=== PATIENT | male | born 1985 | race Caucasian/White ===

== ENCOUNTER 2024-08-04 11:46 | Emergency (ER) | payer OTHER, SELFPAY ==
[2024-08-04 12:10] VITALS: BP 136/84; PULSE 115; RESP 18; TEMP 36.9; O2SAT 99; BMI 32.5
--- NOTE | 2024-08-04 12:18 | XR_ITS ---
Examination: Wrist, right 3 views Technique: Wrist AP, oblique, lateral 3 views Date and time of exam: 08/04/2024, 1:22 PM FINDINGS: No evidence of fracture or dislocation. No chronic degenerative changes or foreign bodies. IMPRESSION: Negative exam
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
--- NOTE | 2024-08-04 12:18 | XR_ITS ---
Examination: Humerus 2 views right INDICATION: Trauma Technique: Humerus, AP lateral 2 views Date and time of exam: 08/04/2024, 1:21 PM FINDINGS: No evidence of fracture or dislocation. No foreign body or soft tissue abnormality. IMPRESSION: Negative exam.
--- NOTE | 2024-08-04 12:18 | XR_ITS ---
Examination: Right elbow 3 views Technique: Elbow AP, oblique, lateral 3 views Exam date and time: 08/04/2024, 2:33 PM FINDINGS: Displaced fracture of the proximal radius. No other acute bony abnormality seen. IMPRESSION: Displaced radial head fracture..
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
[2024-08-04] MEDS: IBUPROFEN TAB 400 MG TABLET 800 MG PO (12:35)
[2024-08-04] MEDS: ACETAMINOPHEN 500 MG TABLET 1000 MG PO (12:35)
[2024-08-04] MEDS: HYDROcodone/APAP 5/325 TABLET 1 TAB PO (14:13)
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
--- NOTE | 2024-08-04 16:36 | XR_ITS ---
Examination: CT right elbow, without contrast. 2-D sagittal reconstructions. 2-D coronal reconstructions. 3-D reconstructions. Date and time of exam:August 04, 2024, 1652 hrs. Indications: Injury to the elbow today, elbow pain CTDI: vol (mGy):6 DLP: (mGycm):756 Technique: Multiple 1.25 mm axial sections of the right elbow have been obtained. 2-D sagittal and coronal reconstructions have been obtained. 3-D reconstructions have been obtained. Low dose protocols were performed. One or more of the following dose reduction techniques were used; automated exposure control, adjustment of the mA and/or KV according to patient size, use of iterative reconstruction technique. Findings: Acute fracture radial neck, extending into the radial head, without significant displacement No elbow dislocation Moderate joint space Impression: Acute fracture radial neck, extending into the radial head
[2024-08-04] MEDS: HYDROcodone/APAP 5/325 TABLET 2 TAB PO (18:16)
--- NOTE | 2024-08-04 18:24 | PRELIM_ITS ---
CT right elbow without intravenous contrast (axial sections with sagittal and coronal reformats) August 04, 2024 at 1654 hours Clinical History: Fracture. No prior study is available for comparison. Findings: There is an acute non-displaced, impacted fracture of the neck of the radius (series number 10, 43/111 ), extending to the head of the radius/intra-articular extension. No evidence of dislocation. There is moderate hemarthrosis. The visualized muscles are unremarkable with maintained intramuscular fat planes. The visualized subcutaneous soft tissues are unremarkable. Impression: Acute non-displaced, impacted fracture of the neck of the radius, extending to the lateral aspect of the head/intra-articular extension. Moderate hemarthrosis. Report Electronically Signed By: Maximiliano Lawrence 08/04/2024 6:24:42 PM [EST]
== END 2024-08-04 18:20 | disposition home or self-care (01) ==
PROVIDERS: Emergency Provider Family Medicine
DX: S52.121A Displaced fracture of head of right radius, initial encounter for closed fracture (principal); X58.XXXA Exposure to other specified factors, initial encounter; Y93.55 Activity, bike riding; S71.111A Laceration without foreign body, right thigh, initial encounter; Z23 Encounter for immunization
CPT/HCPCS: 12002; 73030; 73060; 73080; 73090; 73100; 73200; 73552; 99283; A4565; A9270

== ENCOUNTER 2024-08-28 21:43 | Inpatient (IN) | payer MEDICAID, SELFPAY ==
[2024-08-28 21:45] VITALS: BMI 32.5
[2024-08-28 21:50] VITALS: BP 159/94; PULSE 126; RESP 19; TEMP 36.8; O2SAT 99
--- NOTE | 2024-08-28 22:23 | XR_ITS ---
Examination: Abdomen AP single view Technique: AP portable supine abdomen, single view Exam date and time: August 28, 2024 1002 hrs. Indications: Foreign body in the rectum history Findings: 15 cm opaque foreign body in the pelvis likely in the rectosigmoid Abundant stool in the right colon No obstruction No free air Impression: Opaque foreign body in the pelvis likely in the rectosigmoid
--- NOTE | 2024-08-28 22:23 | PD.EDRME ---
Rapid Medical Screening Exam RME Arrival date/time: 08/28/24 21:43 39M with no significant PMH presents to ED with rectal/anal FB from 3 days ago. Patient has not been able to have BM. Chief Complaint: Abdominal Pain Time Seen by Provider: 08/28/24 22:47 Vital signs: Vital Signs Temperature 98.2 F 08/28/24 21:50 Pulse Rate 126 H 08/28/24 21:50 Respiratory Rate 19 08/28/24 21:50 Blood Pressure 159/94 H 08/28/24 21:50 Pulse Oximetry (%) 99 08/28/24 21:50 Oxygen Delivery Method Room Air 08/28/24 21:50
--- NOTE | 2024-08-28 22:47 | EDNOTE_ITS ---
ED Abdominal Pain RME/HPI General Chief Complaint: Abdominal Pain Stated complaint: ABD PAIN,CONSTIPATION FOR 3 DAYS Time seen by provider: 08/28/24 22:47 Arrival date/time: 08/28/24 21:43 39M with no significant PMH presents to ED with rectal/anal FB from 3 days ago. Patient has just been experimenting and it is an [employer] [place] De[employer] container. Patient has not been able to have BM, but denies N/V. Limitations: no limitations RME / HPI RME / HPI narrative: 08/28/24 21:43 Related Data Previous Rx's ?Medication ?Instructions ?Recorded ibuprofen 800 mg tablet 800 mg PO TID PRN pain #30 t abs 01/05/24 hydrocodone 5 mg-acetaminophen 325 1 tab PO Q6H PRN pa in #20 tabs 08/04/24 mg tablet ibuprofen 800 mg tablet 800 mg PO Q6H PRN pain #14 t abs 08/04/24 Allergies Allergy/AdvReac Type Severity Reaction Status Date / Time No Known Allergies Allergy Verified 08/28/24 21:44 Review of Systems Review of Systems Systems Reviewed: All systems reviewed, normal except as documented Constitutional Constitutional: Reports system reviewed and no additional complaints, except as documented, Denies fever(s) and Denies headache(s) ENT Ears, Nose, Mouth, and Throat: Denies disequilibrium and Denies headache(s) Cardiovascular Cardiovascular: Reports system reviewed and no additional complaints, except as documented, Denies chest pain and Denies dyspnea Respiratory Respiratory: Reports system reviewed and no additional complaints, except as documented, Denies cough and Denies dyspnea Gastrointestinal Gastrointestinal: Reports system reviewed and no additional complaints, except as documented, Reports as per HPI, Reports abdominal pain, Denies nausea and Denies vomiting Neurologic Neurologic: Reports system reviewed and no additional complaints, except as documented, Denies confusion, Denies disequilibrium and Denies headache(s) Psychiatric Psychiatric: Denies confusion Past Medical History Past Medical History NEUROLOGIC: Negative Neurological Disorders CARDIAC: Negative Cardiac Disorders or Congestive Heart Failure RESPIRATORY: Negative Chronic Obstructive Pulmonary Disease (COPD) GENITOURINARY: Negative Renal Disease ENDOCRINE: Negative Diabetes Mellitus Type 1 or Diabetes Mellitus Type 2 Social History SMOKING STATUS: Never smoker ED Exam General Limitations: Present no limitations General appearance: Present alert and in no apparent distress Head Head exam: Present atraumatic Eye Eye exam: Present normal appearance, PERRL and EOMI ENT ENT exam: Present normal exam, normal oropharynx and mucous membranes moist Neck Neck exam: Present normal inspection, full ROM and trachea midline Chest Chest inspection: Present normal inspection and symmetric chest wall rise Respiratory Respiratory exam: Present normal lung sounds bilaterally Cardiovascular Cardiovascular exam: Present regular rate, normal rhythm and normal heart sounds Abdominal Exam Abdominal exam: Present soft and normal bowel sounds Extremities Exam Extremities exam: Present normal inspection and full ROM Back Exam Back exam: Present normal inspection and full ROM Neurological Exam Neurological exam: Present alert, oriented X3 and CN II-XII intact Psychiatric Psychiatric exam: Present normal affect and normal mood Skin Skin exam: Present warm, dry, intact and normal color Course Quality Measures none Orders Category Date Time Status Admit to Inpatient Status Routine Admission 08/28/24 23:03 Active Patient Condition Routine Admission 08/28/24 23:33 Ordered COVID-19 Screening Questionnaire NOW Care 08/28/24 22:49 Active Decision to Admit X1 Care 08/28/24 22:49 Completed EKG (ED ONLY) *Do not use* NOW Care 08/28/24 22:54 Active Insert IV NOW Care 08/28/24 22:49 Active NPO NOW Care 08/28/24 23:03 Active Notify provider NEEDED Care 08/28/24 23:33 Active Consult to Gastroenterology Stat Cons 08/28/24 22:49 Ordered Diet NPO (NOW) Diet 08/28/24 23:03 Active EKG (ED Only) Stat Exams 08/28/24 22:54 Draft XR abdomen 1V Stat Exams 08/28/24 22:23 Completed CBC AM DRAW Lab 08/29/24 05:00 Ordered CBC AM DRAW Lab 08/30/24 05:00 Ordered CBC AM DRAW Lab 08/31/24 05:00 Ordered CBC Stat Lab 08/28/24 23:15 Completed CMP [Comprehensive Metabolic Panel] Stat Lab 08/28/24 23:15 Received Comprehensive Metabolic Panel AM DRAW Lab 08/29/24 05:00 Ordered Comprehensive Metabolic Panel AM DRAW Lab 08/30/24 05:00 Ordered Comprehensive Metabolic Panel AM DRAW Lab 08/31/24 05:00 Ordered PT [Prothrombin Time with INR] Stat Lab 08/28/24 22:54 Ordered PTT [Partial Thromboplastin Time] Stat Lab 08/28/24 22:54 Ordered Acetaminophen Tab [Tylenol Tab] Med 08/28/24 23:33 Active 650 mg PO Q6H PRN Heparin Inj Med 08/29/24 06:00 Ordered 5,000 unit SC Q8HR Morphine Inj Med 08/28/24 22:55 Discontinued 5 mg IVP X1 ONE Ondansetron Inj [Zofran Inj] Med 08/28/24 23:33 Ordered 4 mg IV Q6H PRN Sodium Chloride 0.9% 1000 ml [Ns] 1,000 ml Med 08/28/24 23:31 Active IV 125 mls/hr Code Status Routine Oth 08/28/24 23:33 Ordered Oxygen Delivery PRN RT 08/28/24 23:33 Active Vital Signs Vital signs: Vital Signs Temperature 98.2 F 08/28/24 21:50 Pulse Rate 126 H 08/28/24 21:50 Respiratory Rate 19 08/28/24 21:50 Blood Pressure 159/94 H 08/28/24 21:50 Pulse Oximetry (%) 99 08/28/24 21:50 Oxygen Delivery Method Room Air 08/28/24 21:50 O2 at 99% on RA and WNLs Abdominal Pain MDM MDM Narrative MDM Narrative:: 39M with no significant PMH presents to ED with rectal/anal FB from 3 days ago. Patient has just been experimenting and it is an [employer] [place] De[employer] container. Patient has not been able to have BM, but denies N/V. Physical exam reveals no ab tenderness. Patient is afebrile, calm, and alert. XR reveals FB in rectum. Spoke to Dr. Adair, who will consult. Dr. Echavarria will admit. Patient data External records reviewed:: [facility] previous records Clinical information provided by:: patient Social determinants that could affect healthcare access:: none Patient has the following chronic illnesses:: none How is presenting disease/condition affected by chronic disease/condition?: no chronic disease Evaluation data The following diagnostics were reviewed and interpreted by me:: lab results and radiology exam(s) Lab and/or radiology exams considered but not ordered:: ordered Interpretation Summary: above Medications / Prescriptions Medications or Prescriptions considered but not ordered:: ordered Medication administrations:: Medication Administration History Acetaminophen (Acetaminophen 325 Mg Tablet) 650 mg PO Q6H PRN PRN Reason: Fever >100.3 or pain 1-3 Stop: 09/27/24 23:32 Heparin Sodium (Porcine) (Heparin Sod Inj 5000 Unit/Ml Vial) 5,000 unit SC Q8HR FREDDY Stop: 09/12/24 05:59 Sodium Chloride (Ns) 1,000 mls @ 125 mls/hr IV .Q8H FREDDY Stop: 09/27/24 23:30 Ondansetron HCl (Ondansetron Inj 2 Mg/Ml Inj 2 Ml) 4 mg IV Q6H PRN; Protocol PRN Reason: NAUSEA OR VOMITING Stop: 09/27/24 23:32 Discontinued Medications Morphine Sulfate (Morphine Sulf Inj 10 Mg/Ml Vial) 5 mg IVP X1 ONE Stop: 08/28/24 22:56 Last Admin: 08/28/24 23:13 Dose: 5 mg Documented By: EE above Consultations Consultation(s) initiated? (list below): Yes Diagnosis Differential diagnosis abdominal pain: abdominal pain, acute appendicitis, calculus of kidney, constipation, diverticulitis, endometriosis, gastroenteritis, pancreatitis, small bowel obstruction and other (FB rectum) Most likely diagnosis given after review of the tests above:: FB rectum Admission Indicated Admission indicated?: indicated Admission Request Was there a request for admission?: Yes Admission Attestation Admission request attestation: Discussed case with [Dr. Echavarria] from Hospitalist service regarding admission. Discussed patients ED course, exam findings, labs, and radiology results. The Hospitalist [agrees] to accept the patient for admission. Disposition Plan Disposition Plan: Admit Discharge Plan Plan Patient Disposition: Admit Acute Care w/in Hospital Prescriptions/Referrals Prescriptions/Med Rec: No Action hydrocodone-acetaminophen 5-325 mg tablet 1 tab PO Q6H MDD 4 PRN (Reason: pain) Qty: 20 0RF ibuprofen 800 mg tablet 800 mg PO Q6H PRN (Reason: pain) Qty: 14 0RF ibuprofen 800 mg tablet 800 mg PO TID PRN (Reason: pain) Qty: 30 0RF Problem List Clinical Impression: Foreign body in anus and rectum, initial encounter Patient/Caregiver Discharge Instructions Print Language: Jordanian Stand Alone Forms: [employer] Award Info., Patient Portal Info Letter
--- NOTE | 2024-08-28 22:54 | EKG_ITS ---
[facility] Test Date: 2024-08-28 Pat Name: RHONA NEGRETE Department: Room: - Gender: Male Ophthalmic Lens Inspector: : 1985 Requested By: Kushal Ott Order Number: [id number] Reading MD: Kushal Ott Measurements Intervals [place] Rate: 112 P: 42 FL: 140 QRS: -13 QRSD: 109 T: 38 QT: 331 QTc: 453 Interpretive Statements SINUS TACHYCARDIA ABNORMAL RHYTHM ECG No previous ECG available for comparison /store/S0/[id number]/[id number].pdf
[2024-08-28] MEDS: MORPHINE SULF INJ 10 MG/ML VIAL 5 MG IVP (23:13)
--- NOTE | 2024-08-28 23:17 | PD.EVENT ---
Documentation for date of: 08/28/24 Event Note Event Note: A 39-year-old male presented to the ER with the chief complaint of rectal foreign body. The patient reported that two days ago, he inserted an antiperspirant spray can into his rectum. He stated he has been unable to pass it since the time of insertion. He denies rectal pain or nausea but noted the inability to retrieve the object. He last had a bowel movement prior to the incident and has not had one since. He reports feeling nervous but is otherwise asymptomatic. The patient has a history of HTN. Current medications include Lisinopril, though he has not taken it for approximately 1.5 to 2 months. Social history includes daily cigarette use; he denies alcohol or recreational drug use. He has not been hospitalized recently. In the ER, vital signs recorded as temp 98.2 F, HR 126 bpm, RR 19, BP 159/94 mmHg. KUB revealed a foreign body in the rectum. GI was consulted and the patient is planned for admission. #Rectal Foreign Body Assessment: Retained rectal foreign object (antiperspirant spray can) x2 days, no passage, no bowel movement since insertion, asymptomatic aside from anxiety; KUB confirms retained object; tachycardia (HR 126), BP elevated Plan: - Admit to monitor for potential complications (perforation, bleeding, obstruction) - NPO - GI to attempt endoscopic retrieval; proceed to OR if unsuccessful - Monitor vitals, abdominal exams, signs of peritonitis - CBC, BMP - Pain management as needed #Hypertension Assessment: History of HTN, nonadherent to Lisinopril x ~2 months, current BP 159/94 mmHg Plan: - Monitor BP during hospitalization - Athletic Trainer on medication adherence - Outpatient follow-up for ongoing BP management #Nicotine Dependence Assessment: Daily cigarette use Plan: - Offer nicotine replacement therapy during hospitalization - Athletic Trainer on smoking cessation benefits
[2024-08-28 23:32] LABS: Basophils # (Auto) 0.1 Thou/mm3 (0.0-0.2); Basophils % (Auto) 0 % (0-2.5); Eosinophils # (Auto) 0.3 Thou/mm3 (0.0-0.5); Eosinophils % (Auto) 2 % (0-10); Hemoglobin 15.9 g/dL (13.5-16.0); Immature Granulocytes % (Auto) 1 % (0-0); Immature Granulocytes Auto 0.09 Thou/mm3 (0.00-0.00); Lymphocytes # (Auto) 2.9 Thou/mm3 (1.0-4.8); Lymphocytes % (Auto) 22 % (10-50); Mean Corpuscular HGB Conc 34.6 g/dl (31.0-37.0); Mean Corpuscular Hemoglobin 30.1 pg (25.0-35.0); Mean Corpuscular Volume 87 fL (80-100); Monocytes % (Auto) 8 % (0-12); Neutrophils # (Auto) 8.5 Thou/mm3 (1.8-7.7); Neutrophils % (Auto) 66 % (37-80); Nucleated Red Blood Cell % 0 /100 WBC (0); Platelet Count 454 Thou/mm3 (140-440); RDW Standard Deviation 40.3 fL (35.1-43.9); Red Blood Count 5.29 Miln/mm3 (4.50-5.90); White Blood Count 12.8 Thou/mm3 (3.8-10.6)
--- NOTE | 2024-08-28 23:36 | ESHP_ITS ---
Documentation for date of: 08/28/24 HPI History of Present Illness Chief complaint: rectal foreign body History of present illness: The patient is a 39-year-old male with a previous medical history of hypertension who came into the ED on due to rectal foreign body. His girlfriend at the bedside, patient reports that he was experimenting and inserted old spice deodorant per rectum 3 days ago. Since then he did not had bowel movements, he denies nausea, vomiting, abdominal pain, but reports feeling of pressure in the lower abdomen. He denies fever or chills, shortness of breath. GI specialist Dr. Adair was consulted for foreign body removal. ED course: Blood pressure 159/94, heart rate 126, febrile, saturating adequately on room air. Labs were remarkable for mild leukocytosis 12.8, coag panel unremarkable, INR 1, sodium 140, potassium 3.7, GFR more than 60. Abdominal x- ray showed opaque foreign body in the pelvis likely in the rectosigmoid. EKG showed sinus tachycardia. Patient is going to be admitted for foreign body removal for further monitoring and management. Social history: Smokes vape every day, denies alcohol use, denies recreational substances. Surgical history: Denies surgeries Home medications: Lisinopril Review of Systems Review of Systems Systems Reviewed: All systems reviewed, normal except as documented Past Medical History Past Medical History NEUROLOGIC: Negative Neurological Disorders CARDIAC: Negative Cardiac Disorders or Congestive Heart Failure RESPIRATORY: Negative Chronic Obstructive Pulmonary Disease (COPD) GENITOURINARY: Negative Renal Disease ENDOCRINE: Negative Diabetes Mellitus Type 1 or Diabetes Mellitus Type 2 Social History SMOKING STATUS: Current every day smoker (vaping) Exam Vital Signs Temp Pulse Resp BP Pulse Ox O2 Del Method 98.2 F 126 H 19 159/94 H 99 Room Air 08/28/24 21:50 08/28/24 21:50 08/28/24 21:50 08/28/24 21:50 08/28/24 21:50 08/28/24 21:50 Narrative Exam Physical Exam General: Awake and in no acute distress. Conversational and non-toxic appearing. Flushing of face and neck. HEENT: Normocephalic, atraumatic, mucous membranes moist. Heart: Regular rate and rhythm, no murmurs. Lungs: Clear to auscultation with no wheezing or crackles. Abdomen: Soft, nondistended, nontender, positive bowel sounds. ?No guarding or rebound tenderness. Neurologic: Alert and oriented x3, no gross neurological deficit, and patient able to move all 4 extremities. Extremities: No edema. Skin: No rash or ecchymoses. Results: Labs 08/28/24 23:15 08/28/24 23:15 Quality Measures Quality Measures VTE prophylaxis Medications Home Medications and Allergies Allergies Allergy/AdvReac Type Severity Reaction Status Date / Time No Known Allergies Allergy Verified 08/28/24 21:44 Visit Medications Acetaminophen (Acetaminophen 325 Mg Tablet) 650 mg PO Q6H PRN PRN Reason: Fever >100.3 or pain 1-3 Stop: 09/27/24 23:32 Heparin Sodium (Porcine) (Heparin Sod Inj 5000 Unit/Ml Vial) 5,000 unit SC Q8HR FREDDY Stop: 09/12/24 05:59 Sodium Chloride (Ns) 1,000 mls @ 125 mls/hr IV .Q8H FREDDY Stop: 09/27/24 23:30 Ondansetron HCl (Ondansetron Inj 2 Mg/Ml Inj 2 Ml) 4 mg IV Q6H PRN; Protocol PRN Reason: NAUSEA OR VOMITING Stop: 09/27/24 23:32 Discontinued Medications Morphine Sulfate (Morphine Sulf Inj 10 Mg/Ml Vial) 5 mg IVP X1 ONE Stop: 08/28/24 22:56 Last Admin: 08/28/24 23:13 Dose: 5 mg Assessment & Plan Plan The patient is a 39-year-old male with a previous medical history of hypertension who came into the ED on due to rectal foreign body. Patient is going to be admitted for foreign body removal for further monitoring and management. #Rectal foreign body Patient had inserted a can of Old Spice Deodorant in his rectum 3 days ago. Denies fever, chills, abdominal pain, nausea, vomiting. No guarding, rebounding tenderness on palpation. Plan: - GI consult for foreign body removal - NPO - Further management depends on results of retrieval - Continue to monitor for signs of peritonitis #Hypertension Asymptomatic. BP 159/94 Plan: - Continue monitoring for now Health maintenance: FEN: NPO DVT prophylaxis: heparin sc GI prophylaxis: none Dispo: medsurg CODE STATUS: Full code Plan of care discussed with attending Dr. Echavarria. Susan Dominique MD, PGY 1. Attending Provider Attestation/Addendum Pt was evaluated and plan formulated together with the housestaff team. I have reviewed the residents note above and agree with most of its content. Please refer to the residents note for additional details.
[2024-08-28 23:50] LABS: Alanine Aminotransferase 26 U/L (10-49); Albumin, Serum 4.4 gm/dL (3.5-5.0); Albumin/Globulin Ratio 1.6 (1.2-2.2); Alkaline Phosphatase 120 U/L (46-116); Anion Gap 11 (7-16); Aspartate Amino Transferase 24 U/L (0-34); BUN/Creatinine Ratio 10 Ratio (12-20); Bilirubin,Total 0.4 mg/dL (0.3-1.2); Blood Urea Nitrogen 10 mg/dL (9-23); Calcium 9.6 mg/dL (8.3-10.6); Calcium (Corrected) 9.6 mg/dL (8.5-10.1); Carbon Dioxide 21.5 mMol/L (20.0-31.0); Chloride 108 mMol/L (98-107); Estimated Creatinine Clearance 115.5 mL/min (>60); Globulin 2.8 gm/dL (2.3-3.5); Glucose 98 mg/dL (74-106); Osmolality,Calculated 278 (275-295); Potassium 3.7 mMol/L (3.4-5.1); Sodium 140 mMol/L (136-145); Total Protein 7.2 gm/dL (5.7-8.2); eGFR > 60 See Note
[2024-08-29] VITALS (24 sets, daily range): BP systolic 109–154; BP diastolic 67–112; PULSE 71–99; RESP 12–99; TEMP 35.9–36.8; O2SAT 94–100; BMI 32.7; BMI 32.2
[2024-08-29 00:20] LABS: Partial Thromboplastin Time 27.3 Seconds (22.0-36.0); Prothrombin Time 11.3 Seconds (9.0-12.2)
[2024-08-29] MEDS: SODIUM CHLORIDE 0.9% 1000 ML 1,000 ML 125 ML IV ×3 (00:49→21:17)
[2024-08-29] MEDS: HEPARIN SOD INJ 5000 UNIT/ML VIAL SC ×2 (05:55→21:54)
[2024-08-29 06:31] LABS: Alanine Aminotransferase 22 U/L (10-49); Albumin/Globulin Ratio 1.7 (1.2-2.2); Alkaline Phosphatase 110 U/L (46-116); Anion Gap 11 (7-16); Aspartate Amino Transferase 17 U/L (0-34); BUN/Creatinine Ratio 13 Ratio (12-20); Basophils # (Auto) 0.1 Thou/mm3 (0.0-0.2); Basophils % (Auto) 1 % (0-2.5); Bilirubin,Total 0.6 mg/dL (0.3-1.2); Blood Urea Nitrogen 12 mg/dL (9-23); Calcium 8.7 mg/dL (8.3-10.6); Calcium (Corrected) 8.7 mg/dL (8.5-10.1); Carbon Dioxide 26.2 mMol/L (20.0-31.0); Chloride 107 mMol/L (98-107); Creatinine (Component) 0.9 mg/dL (0.6-1.3); Eosinophils # (Auto) 0.4 Thou/mm3 (0.0-0.5); Eosinophils % (Auto) 4 % (0-10); Estimated Creatinine Clearance 127.9 mL/min (>60); Globulin 2.3 gm/dL (2.3-3.5); Glucose 88 mg/dL (74-106); Hematocrit 44.8 % (41.0-53.0); Immature Granulocytes % (Auto) 1 % (0-0); Immature Granulocytes Auto 0.08 Thou/mm3 (0.00-0.00); Lymphocytes # (Auto) 3.2 Thou/mm3 (1.0-4.8); Lymphocytes % (Auto) 31 % (10-50); Mean Corpuscular HGB Conc 33.5 g/dl (31.0-37.0); Mean Corpuscular Hemoglobin 30.3 pg (25.0-35.0); Mean Corpuscular Volume 91 fL (80-100); Monocytes % (Auto) 9 % (0-12); Neutrophils # (Auto) 5.7 Thou/mm3 (1.8-7.7); Neutrophils % (Auto) 54 % (37-80); Nucleated Red Blood Cell % 0 /100 WBC (0); Osmolality,Calculated 285 (275-295); Platelet Count 420 Thou/mm3 (140-440); Potassium 3.6 mMol/L (3.4-5.1); Red Blood Count 4.95 Miln/mm3 (4.50-5.90); Sodium 144 mMol/L (136-145); Total Protein 6.3 gm/dL (5.7-8.2); White Blood Count 10.4 Thou/mm3 (3.8-10.6); eGFR > 60 See Note
[2024-08-29] MEDS: MORPHINE SULF INJ 10 MG/ML VIAL IVP (09:54)
--- NOTE | 2024-08-29 10:09 | PC.SS ---
Follow up note: Pt is on IV pain meds. Dr. Adair is consulting.
--- NOTE | 2024-08-29 11:48 | ESPR_ITS ---
Documentation for date of: 08/29/24 Subjective Subjective Interval history: Patient seen and examined at bedside. Patient admitted overnight for foreign body object at rectosigmoid junction. Gastroenterology was consulted, recommended Fleet enemas. Patient will be evaluated by GI for possible sigmoidoscopy. Exam Vital Signs Temp Pulse Resp BP Pulse Ox O2 Del Method 97.4 F 79 18 145/96 H 95 Room Air 08/29/24 08:00 08/29/24 09:52 08/29/24 09:52 08/29/24 08:00 08/29/24 08:00 08/29/24 08:00 Narrative Exam Physical Exam General: Awake and in no acute distress. Conversational and non-toxic appearing. HEENT: Normocephalic, atraumatic, mucous membranes moist. Heart: Regular rate and rhythm, no murmurs. Lungs: Clear to auscultation with no wheezing or crackles. Abdomen: Soft, nondistended, nontender, positive bowel sounds. ?No guarding or rebound tenderness. Neurologic: Alert and oriented x3, no gross neurological deficit, and patient able to move all 4 extremities. Extremities: No edema. Skin: No rash or ecchymoses. Objective Labs 08/30/24 05:15 08/30/24 05:15 Labs: Laboratory Results - last 24 hr 08/28/24 08/28/24 08/29/24 23:15 23:45 04:34 WBC 12.8 H 10.4 RBC 5.29 4.95 Hgb 15.9 15.0 Hct 46.0 44.8 MCV 87 91 MCH 30.1 30.3 MCHC 34.6 33.5 RDW Std Deviation 40.3 42.0 Plt Count 454 H 420 D Neut % (Auto) 66 54 Lymph % (Auto) 22 31 [place] % (Auto) 8 9 Eos % (Auto) 2 4 Baso % (Auto) 0 1 Neut # (Auto) 8.5 H 5.7 Lymph # (Auto) 2.9 3.2 [place] # (Auto) 1.0 H 1.0 H Eos # (Auto) 0.3 0.4 Baso # (Auto) 0.1 0.1 Immature Gran # (Auto) 0.09 H 0.08 H Absolute Nucleated RBC 0.00 0.00 Immature Gran % 1 H 1 H Nucleated RBC % 0 0 PT 11.3 INR 1.0 APTT 27.3 Sodium 140 Cancelled 144 Potassium 3.7 Cancelled 3.6 Chloride 108 H Cancelled 107 Carbon Dioxide 21.5 Cancelled 26.2 Anion Gap 11 Cancelled 11 BUN 10 Cancelled 12 Creatinine 1.0 Cancelled 0.9 Estim Creat Clear Calc 115.5 Cancelled 127.9 eGFR > 60 Cancelled > 60 BUN/Creatinine Ratio 10 L Cancelled 13 Glucose 98 Cancelled 88 Calculated Osmolality 278 Cancelled 285 Calcium 9.6 Cancelled 8.7 Corrected Calcium 9.6 Cancelled 8.7 Total Bilirubin 0.4 Cancelled 0.6 AST 24 Cancelled 17 ALT 26 Cancelled 22 Alkaline Phosphatase 120 H Cancelled 110 Total Protein 7.2 Cancelled 6.3 Albumin 4.4 Cancelled 4.0 Globulin 2.8 Cancelled 2.3 Albumin/Globulin Ratio 1.6 Cancelled 1.7 Quality Measures Quality Measures VTE prophylaxis Assessment & Plan Assessment Current Active Medications: Generic Name Dose Route Start Last Admin Trade Name Freq PRN Reason Stop Dose Admin Acetaminophen 650 mg 08/28/24 23:33 Acetaminophen 325 Mg Tablet PO 09/27/24 23:32 Q6H PRN Fever >100.3 or pain 1-3 Heparin Sodium (Porcine) 5,000 unit 08/29/24 06:00 08/29/24 05:55 Heparin Sod Inj 5000 Unit/Ml Vial SC 09/12/24 05:59 5,000 unit Q8HR FREDDY Administration Sodium Chloride 1,000 mls @ 125 mls/hr 08/28/24 23:31 08/29/24 09:54 Ns IV 09/27/24 23:30 125 mls/hr .Q8H FREDDY Administration Morphine Sulfate 1 mg 08/29/24 08:33 08/29/24 09:54 Morphine Sulf Inj 10 Mg/Ml Vial IVP 09/03/24 08:32 1 mg Q4HR PRN Administration BREAKTHROUGH PAIN (SEVERE) Protocol Nicotine 14 mg 08/29/24 11:30 Nicotine Patch 14 Mg/24 Hr Patch.Td24 TOP 09/28/24 11:29 QDAY FREDDY Ondansetron HCl 4 mg 08/28/24 23:33 Ondansetron Inj 2 Mg/Ml Inj 2 Ml IV 09/27/24 23:32 Q6H PRN NAUSEA OR VOMITING Protocol Plan The patient is a 39-year-old male with a previous medical history of hypertension who came into the ED on due to rectal foreign body. Patient is going to be admitted for foreign body removal for further monitoring and management. #Rectal foreign body Patient had inserted a can of Old Spice Deodorant in his rectum 3 days ago. Denies fever, chills, abdominal pain, nausea, vomiting. No guarding, rebounding tenderness on palpation. Plan: - Ordered Fleet enemas - GI consult for foreign body removal - NPO - Further management depends on results of retrieval - Continue to monitor for signs of peritonitis #Hypertension Asymptomatic. BP 159/94. No known home medication. Plan: - Continue monitoring for now Health maintenance: FEN: NPO DVT prophylaxis: heparin sc GI prophylaxis: none Dispo: medsurg CODE STATUS: Full code Case discussed with Attending Dr. Deras. Cleopatra Rios PGY1 Disclaimer: This note was dictated by speech recognition. Minor errors in cleaner operator may be present due to voice recognition software. Attending Provider Attestation/Addendum I reviewed labs, imaging, EKG, home medications and prior available records. Face to face evaluation was performed by me. I have personally examined the patient and discussed assessment and plan with the IM team. I reviewed the resident note and agree with the plan with exceptions as below. Foreign body in anus Leukocytosis Tobacco use Trend WBC: Downtrending Start prophylactic IV Zosyn Consulted GI: Recommended Fleet enema x 3. If not working then we will proceed to colonoscopy Counseled the patient regarding the importance of tobacco cessation
[2024-08-29] MEDS: NICOTINE PATCH 14 MG/24 HR PATCH.TD24 TOP (12:21)
--- NOTE | 2024-08-29 19:17 | PD.IMCONS ---
HPI Data of Consult Requesting Physician: Pee Deras MD Primary Care Provider: Physician No Primary/Family Consult Narrative Reason for consult: Foreign body rectum History of present illness: 39-year-old male I consulted at the request of the ER physician for a foreign body in the rectum 15 cm long piece seen on abdominal x-ray cc:: cc: Pee Deras MD Review of Systems Review of Systems Systems Reviewed: All systems reviewed, normal except as documented Meds Home Medications and Allergies Allergies Allergy/AdvReac Type Severity Reaction Status Date / Time No Known Allergies Allergy Verified 08/28/24 21:44 Exam Vital Signs Temp Pulse Resp BP Pulse Ox O2 Del Method 97.6 F 99 17 143/97 H 96 Room Air 08/29/24 16:00 08/29/24 16:00 08/29/24 16:00 08/29/24 16:00 08/29/24 16:00 08/29/24 16:00 Constitutional Comments: Alert oriented Routine Respiratory Exam Comments: Normal to auscultation Routine Abdominal Exam Comments: Soft nontender Results Labs 08/29/24 04:34 08/29/24 04:34 Labs: Short CBC 08/28/24 08/29/24 Range/Units 23:15 04:34 WBC 12.8 H 10.4 (3.8-10.6) Thou/mm3 Hgb 15.9 15.0 (13.5-16.0) g/dL Hct 46.0 44.8 (41.0-53.0) % Plt Count 454 H 420 D (140-440) Thou/mm3 BMP 08/28/24 08/28/24 08/29/24 23:15 23:45 04:34 Sodium 140 Cancelled 144 Potassium 3.7 Cancelled 3.6 Chloride 108 H Cancelled 107 Carbon Dioxide 21.5 Cancelled 26.2 BUN 10 Cancelled 12 Creatinine 1.0 Cancelled 0.9 Glucose 98 Cancelled 88 Calcium 9.6 Cancelled 8.7 Liver Function 08/28/24 08/28/24 08/29/24 Range/Units 23:15 23:45 04:34 Total Bilirubin 0.4 Cancelled 0.6 (0.3-1.2) mg/dL AST 24 Cancelled 17 (0-34) U/L ALT 26 Cancelled 22 (10-49) U/L Alkaline Phosphatase 120 H Cancelled 110 (46-116) U/L Albumin 4.4 Cancelled 4.0 (3.5-5.0) gm/dL Assessment and Plan Additional Assessment & Plan Additional Plan: Foreign body rectum Plan Consent obtained for fiberoptic colonoscopy with possible removal of the foreign body endoscopically under intravenous moderate sedation Will proceed with the procedure
--- NOTE | 2024-08-29 20:00 | SUR.PHASEI ---
pt received to [facility]. vss. no c/o pain or nausea. vss. report from nurse aminata. pt drowsy but arousable.
--- NOTE | 2024-08-29 20:30 | SUR.PHASEI ---
report called to ciro on ms. vss. breathing even and unlabored on room air. denies pain and nausea. pt answers questions appropriately.
--- NOTE | 2024-08-29 21:41 | PD.SURCONS ---
HPI Consult details Consult date: 08/29/24 Reason for consultation narrative: The patient was seen in consultation because of foreign body in the rectosigmoid region which could not be removed by the endoscope History of present illness: History of Latoya's revealed that the patient has had this incident about 3 days ago. I was not able to talk to the patient because he was well sedated after colonoscopy and attempted removal of the foreign body. There was no family members to talk either. Information was obtained from the chart and apparently patient has hypertension Review of Systems Constitutional Constitutional: Denies headache(s) ENT Ears, Nose, Mouth, and Throat: Denies disequilibrium and Denies headache(s) Neurologic Neurologic: Reports system reviewed and no additional complaints, except as documented, Denies confusion, Denies disequilibrium and Denies headache(s) Psychiatric Psychiatric: Denies confusion Meds Home Medications and Allergies Allergies Allergy/AdvReac Type Severity Reaction Status Date / Time No Known Allergies Allergy Verified 08/28/24 21:44 Exam Vital Signs Temp Pulse Resp BP Pulse Ox O2 Del Method O2 Flow Rate 97.8 F 71 15 130/92 H 94 L Room Air 3 08/29/24 21:25 08/29/24 21:25 08/29/24 21:25 08/29/24 21:25 08/29/24 21:25 08/29/24 21:25 08/29/24 19:58 Narrative Exam Physical examination revealed a 39-year-old white male who appeared to be in his stated age he is 5 foot 9 inches tall weighing 218 pounds with BMI of 32.3 Routine Abdominal Exam Comments: Abdominal examination is negative there are no signs of peritoneal irritation. No tenderness was elicited in the left lower quadrant Results Results: Laboratory Laboratory Narrative: Laboratory results are within normal limits Results: Imaging Imaging narrative: Plain x-ray of the abdomen showed long foreign body measuring 15 cm in the rectosigmoid area Assessment & Plan Additional Assessment Additional comments: Impression: Foreign body in the rectosigmoid region unable to remove through the colonoscopy Plan Plan: I advised that the patient undergo removal by explored laparotomy and colostomy. Patient also was told that he may end up requiring colostomy in case there is a large fecal contamination.
--- NOTE | 2024-08-29 23:25 | XR_ITS ---
Examination: Abdomen AP single view Technique: AP portable supine abdomen, single view Exam date and time: August 30, 2024 0017 hrs. Comparison August 28, 2024 Indications: History foreign body in the colon Findings: 15 cm foreign body in the lower right abdomen, likely in sigmoid colon No free air No obstruction Impression: 15 cm foreign body in the lower right abdomen, likely sigmoid colon
[2024-08-30] VITALS (15 sets, daily range): BP systolic 106–147; BP diastolic 67–90; PULSE 69–104; RESP 15–96; TEMP 36–36.8; O2SAT 92–100; BMI 32.3
[2024-08-30] MEDS: PIPER/TAZO 3.375 GM PREMIX 3.375 GM/50 ML BAG IV ×2 (02:23→11:15)
[2024-08-30] MEDS: SODIUM CHLORIDE 0.9% 1000 ML 1,000 ML 125 ML IV ×3 (05:04→23:42)
[2024-08-30 05:36] LABS: Basophils # (Auto) 0.1 Thou/mm3 (0.0-0.2); Basophils % (Auto) 1 % (0-2.5); Eosinophils # (Auto) 0.4 Thou/mm3 (0.0-0.5); Eosinophils % (Auto) 5 % (0-10); Hematocrit 42.6 % (41.0-53.0); Hemoglobin 14.2 g/dL (13.5-16.0); Immature Granulocytes % (Auto) 1 % (0-0); Immature Granulocytes Auto 0.08 Thou/mm3 (0.00-0.00); Lymphocytes # (Auto) 2.6 Thou/mm3 (1.0-4.8); Lymphocytes % (Auto) 28 % (10-50); Mean Corpuscular HGB Conc 33.3 g/dl (31.0-37.0); Mean Corpuscular Hemoglobin 30.1 pg (25.0-35.0); Mean Corpuscular Volume 90 fL (80-100); Monocytes # (Auto) 0.9 Thou/mm3 (0.0-0.8); Monocytes % (Auto) 9 % (0-12); Neutrophils # (Auto) 5.5 Thou/mm3 (1.8-7.7); Neutrophils % (Auto) 58 % (37-80); Nucleated Red Blood Cell % 0 /100 WBC (0); Platelet Count 375 Thou/mm3 (140-440); RDW Standard Deviation 41.1 fL (35.1-43.9); Red Blood Count 4.72 Miln/mm3 (4.50-5.90); White Blood Count 9.5 Thou/mm3 (3.8-10.6)
[2024-08-30 06:27] LABS: Alanine Aminotransferase 22 U/L (10-49); Albumin, Serum 3.6 gm/dL (3.5-5.0); Albumin/Globulin Ratio 1.6 (1.2-2.2); Alkaline Phosphatase 104 U/L (46-116); Anion Gap 9 (7-16); Aspartate Amino Transferase 19 U/L (0-34); BUN/Creatinine Ratio 13 Ratio (12-20); Bilirubin,Total 0.8 mg/dL (0.3-1.2); Blood Urea Nitrogen 12 mg/dL (9-23); Calcium 8.2 mg/dL (8.3-10.6); Calcium (Corrected) 8.5 mg/dL (8.5-10.1); Carbon Dioxide 26.2 mMol/L (20.0-31.0); Chloride 109 mMol/L (98-107); Creatinine (Component) 0.9 mg/dL (0.6-1.3); Estimated Creatinine Clearance 127.9 mL/min (>60); Globulin 2.2 gm/dL (2.3-3.5); Glucose 82 mg/dL (74-106); Osmolality,Calculated 285 (275-295); Potassium 3.6 mMol/L (3.4-5.1); Sodium 144 mMol/L (136-145); Total Protein 5.8 gm/dL (5.7-8.2); eGFR > 60 See Note
[2024-08-30] MEDS: MORPHINE SULF INJ 10 MG/ML VIAL IVP (06:40)
--- NOTE | 2024-08-30 06:50 | PC.NURSE ---
DR. KLEIN CAME AND EXPLAINED THE SURGERY TO PATIENT.ATTEMPTED TO GET CONSENT BUT PATIENT WANTS TO WAIT HER TO COME FIRST..PROMISED TO CALL ONCE READY TO SIGN CONSENT.WILL INFORM DAY SHIFT RN ON DUTY.
[2024-08-30] MEDS: NICOTINE PATCH 14 MG/24 HR PATCH.TD24 TOP (09:38)
--- NOTE | 2024-08-30 13:48 | SUR.PHASEI ---
134 Patient arrived to recovery resting comfortably in bed, on oxygen 8L via oxy mask with an oral airway in place, breathing unlabored, vital signs stable, dressing intact to abdomen; jose, adaptic, gauze, medipore tape, no bleeding noted, report received from Kayden HURTADO/Dr. Olmstead and Edith BRADFORD/Darya BRADFORD
--- NOTE | 2024-08-30 13:51 | PC.SS ---
SS met with patient regarding his d/c plan.? Pt is alert/oriented.? Pt was admitted for Foreign Body In Anus and Rectum.? Pt confirmed demographic and contact information is correct on facesheet.? Pt resides with girlfriend.? Pt ambulates independently without assistance or DME.? Pt is ok with all ADLs.? Patient?s pharmacy of choice is [facility].? Pt named his girlfriend, Latoya Zamarripa medical decision maker if he is unable.? Patient?s choice is to return home upon d/c.? Pt does not have an advance directive, SS offered, and pt declined.? Pt states he is not diabetic and is not on dialysis.? Pt states he followed up with PCP on August 15, 2024. D/C plan:? Return home Next of Kin:? Latoya Zamarripa, girlfriend, phone# [phone] PCP:? [facility] Address:? Correct on facesheet
--- NOTE | 2024-08-30 13:54 | ESPR_ITS ---
Documentation for date of: 08/30/24 Subjective Subjective Interval history: Patient seen and examined at bedside. Patient underwent colonoscopy by bias cutting machine operator vertical yesterday, was unable to remove foreign body. General surgery was consulted, patient is scheduled for surgical intervention today to remove foreign body. Pain is well-managed on IV morphine, patient is currently n.p.o. Exam Vital Signs Temp Pulse Resp BP Pulse Ox O2 Del Method O2 Flow Rate 97.6 F 104 H 17 140/89 H 92 L Room Air 3 08/30/24 08:00 08/30/24 08:00 08/30/24 08:00 08/30/24 08:00 08/30/24 08:00 08/30/24 08:00 08/29/24 19:58 Narrative Exam Physical Exam General: Awake and in no acute distress. Conversational and non-toxic appearing. HEENT: Normocephalic, atraumatic, mucous membranes moist. Heart: Regular rate and rhythm, no murmurs. Lungs: Clear to auscultation with no wheezing or crackles. Abdomen: Soft, nondistended, nontender, positive bowel sounds. ?No guarding or rebound tenderness. Neurologic: Alert and oriented x3, no gross neurological deficit, and patient able to move all 4 extremities. Extremities: No edema. Skin: No rash or ecchymoses. Objective Labs 08/30/24 05:15 08/30/24 05:15 Labs: Laboratory Results - last 24 hr 08/30/24 05:15 WBC 9.5 RBC 4.72 Hgb 14.2 Hct 42.6 MCV 90 MCH 30.1 MCHC 33.3 RDW Std Deviation 41.1 Plt Count 375 D Neut % (Auto) 58 Lymph % (Auto) 28 [place] % (Auto) 9 Eos % (Auto) 5 Baso % (Auto) 1 Neut # (Auto) 5.5 Lymph # (Auto) 2.6 [place] # (Auto) 0.9 H Eos # (Auto) 0.4 Baso # (Auto) 0.1 Immature Gran # (Auto) 0.08 H Absolute Nucleated RBC 0.00 Immature Gran % 1 H Nucleated RBC % 0 Sodium 144 Potassium 3.6 Chloride 109 H Carbon Dioxide 26.2 Anion Gap 9 BUN 12 Creatinine 0.9 Estim Creat Clear Calc 127.9 eGFR > 60 BUN/Creatinine Ratio 13 Glucose 82 Calculated Osmolality 285 Calcium 8.2 L Corrected Calcium 8.5 Total Bilirubin 0.8 AST 19 ALT 22 Alkaline Phosphatase 104 Total Protein 5.8 Albumin 3.6 Globulin 2.2 L Albumin/Globulin Ratio 1.6 Quality Measures Quality Measures VTE prophylaxis Assessment & Plan Assessment Current Active Medications: Generic Name Dose Route Start Last Admin Trade Name Freq PRN Reason Stop Dose Admin Acetaminophen 650 mg 08/28/24 23:33 Acetaminophen 325 Mg Tablet PO 09/27/24 23:32 Q6H PRN Fever >100.3 or pain 1-3 Fentanyl Citrate 25 mcg 08/30/24 12:33 Fentanyl Cit Inj 50 Mcg/Ml Amp 2ml IV 08/30/24 14:33 Q5M PRN PAIN SCALE 1-3 (mild Heparin Sodium (Porcine) 5,000 unit 08/29/24 06:00 08/30/24 05:03 Heparin Sod Inj 5000 Unit/Ml Vial SC 09/12/24 05:59 Not Given Q8HR FREDDY Hydromorphone HCl 0.4 mg 08/30/24 12:33 Hydromorphone Inj 2 Mg/Ml Vial IV 08/30/24 14:34 Q5M PRN PAIN SCALE 7-10 (Severe Sodium Chloride 1,000 mls @ 125 mls/hr 08/28/24 23:31 08/30/24 09:37 Ns IV 09/27/24 23:30 Not Given .Q8H FREDDY Piperacillin/Tazobactam/Dextrose 3.375 gm in 50 mls @ 12.5 mls/hr 08/30/24 10:55 08/30/24 11:15 Zosyn IV 09/06/24 10:54 12.5 mls/hr Q8HR FREDDY Administration Acetaminophen 1,000 mg in 100 mls @ 250 mls/hr 08/30/24 12:34 Ofirmev Inj IV 08/31/24 06:23 Q6HR FREDDY Morphine Sulfate 1 mg 08/29/24 08:33 08/30/24 06:40 Morphine Sulf Inj 10 Mg/Ml Vial IVP 09/03/24 08:32 1 mg Q4HR PRN Administration BREAKTHROUGH PAIN (SEVERE) Protocol Morphine Sulfate 3 mg 08/30/24 12:33 Morphine Sulf Inj 10 Mg/Ml Vial IV 08/30/24 14:33 Q5M PRN PAIN SCALE 4-6 (Moderate Nicotine 14 mg 08/29/24 11:30 08/30/24 09:38 Nicotine Patch 14 Mg/24 Hr Patch.Td24 TOP 09/28/24 11:29 14 mg QDAY FREDDY Administration Ondansetron HCl 4 mg 08/28/24 23:33 Ondansetron Inj 2 Mg/Ml Inj 2 Ml IV 09/27/24 23:32 Q6H PRN NAUSEA OR VOMITING Protocol Plan The patient is a 39-year-old male with a previous medical history of hypertension who came into the ED on due to rectal foreign body. Patient is going to be admitted for foreign body removal for further monitoring and management. #Rectal foreign body Patient had inserted a can of Old Spice Deodorant in his rectum 3 days ago. Denies fever, chills, abdominal pain, nausea, vomiting. No guarding, rebounding tenderness on palpation. GI unable to remove foreign body with colonoscopy Plan: - General Surgery consulted, patient scheduled for surgical intervention later today - NPO - Further management depends on results of retrieval - Continue to monitor for signs of peritonitis #Hypertension Asymptomatic. BP 159/94. No known home medication. Plan: - Continue monitoring for now Health maintenance: FEN: NPO DVT prophylaxis: heparin sc GI prophylaxis: none Dispo: medsurg CODE STATUS: Full code Case discussed with Attending Dr. Deras. Cleopatra Rios PGY1 Disclaimer: This note was dictated by speech recognition. Minor errors in drafter commercial may be present due to voice recognition software. Attending Provider Attestation/Addendum I reviewed labs, imaging, EKG, home medications and prior available records. Face to face evaluation was performed by me. I have personally examined the patient and discussed assessment and plan with the IM team. I reviewed the resident note and agree with the plan with exceptions as below. Foreign body in anus Leukocytosis Tobacco use Trend WBC: Downtrending Continue prophylactic IV Zosyn given the risk of bowel perforation Consulted GI: Gave Fleet enema x 3, but the foreign body did not pass. Proceeded to colonoscopy with unsuccessful attempts. Consulted general surgery who recommended exploratory laparotomy on 08/30 Counseled the patient regarding the importance of tobacco cessation
--- NOTE | 2024-08-30 13:55 | PD.SUROPNT ---
Date of Procedure 08/30/24 Pre Op Diagnosis Foreign body in the rectosigmoid colon Post Op Diagnosis Same Procedure Explored laparotomy and removal of the foreign body from the rectosigmoid colon Findings Patient is found to have a large old spice can there is put in the rectum which is moved to the sigmoid colon and this could not be removed by the endoscopist therefore exploration was indicated Procedure Description At the patient was brought to the operating room endotracheal anesthesia was given. Patient's leg was kept in lithotomy position and draped for rectal approach to pull out the foreign body. Abdomen was prepped with ChloraPrep solution and draped in a sterile manner. Timeout was performed. Then he received 3.375 g of Zosyn for prophylaxis. Then a lower midline incision was made for about 6 to 7 inches in length and abdominal cavity was entered. I was able to feel the foreign body in the rectum immediately it was fairly large measuring 15 cm in length and 7 cm in width and it was an old spice spray scan. At this time I asked Dr Richardson to help me to pull this foreign body from the rectum. I was able to milk it down from the sigmoid colon down into the rectum and Dr. Richardson pulled it out without any problem. Then after checking for the colon the wound was closed in 1 layer with interrupted 0 PDS sutures. Subcu tissues irrigated and closed with 3-0 plain and skin by jose after injecting half percent Marcaine for analgesia. Patient tolerated the procedure well and left operating room in stable condition. Anesthesia GETA Pathology / specimen None Estimated Blood Loss 50 Surgeon Mari Mcfadden MD Surgical Staff Operation Date: 08/30/24 08:45 Case Staff Anesthesiologist: Joe Olmstead RN First Assistant: Dayana Berg
[2024-08-30] MEDS: HYDROmorphone INJ 2 MG/ML VIAL 0.4 MG IV (14:51)
[2024-08-30] MEDS: ACETAMINOPHEN IVPB 1,000 MG/100 ML VIAL 250 MG IV ×3 (14:55→23:35)
--- NOTE | 2024-08-30 15:08 | SUR.PHASEI ---
1508 patient sleeping comfortably in bed, oxygen decreasing to 91-94% on room air, oxygen therapy initiated 2L nasal cannula, will monitor patient
--- NOTE | 2024-08-30 15:26 | SUR.PHASEI ---
1519 Report given to Shara BRADFORD, patient meets discharge criteria from recovery, resting comfortably in bed, on oxygen 2L via nasal cannula, breathing unlabored, vital signs stable, denies pain, dressing intact; no bleeding noted, patient eating ice chips; tolerating well, denies nausea 1526 Patient transported via bed to room 359 without incident, Brionna BRADFORD promptly arrived to patients room, patient family as bedside, patient resting comfortably in bed with Brionna BRADFORD at bedside when this casualty underwriter left patients room.
--- NOTE | 2024-08-30 19:54 | PD.IMPROG ---
Documentation for date of: 08/30/24 Subjective Subjective Interval history: Patient underwent exporter laparotomy with removal of the foreign body which was milked into the rectum and then subsequently removed from the sigmoid colon Exam Vital Signs Temp Pulse Resp BP Pulse Ox O2 Del Method O2 Flow Rate 97.3 F 79 16 123/77 97 Room Air 2 08/30/24 16:00 08/30/24 16:44 08/30/24 16:44 08/30/24 16:00 08/30/24 16:00 08/30/24 16:00 08/30/24 15:18 Objective Labs 08/30/24 05:15 08/30/24 05:15 Labs: Laboratory Results - last 24 hr 08/30/24 05:15 WBC 9.5 RBC 4.72 Hgb 14.2 Hct 42.6 MCV 90 MCH 30.1 MCHC 33.3 RDW Std Deviation 41.1 Plt Count 375 D Neut % (Auto) 58 Lymph % (Auto) 28 [place] % (Auto) 9 Eos % (Auto) 5 Baso % (Auto) 1 Neut # (Auto) 5.5 Lymph # (Auto) 2.6 [place] # (Auto) 0.9 H Eos # (Auto) 0.4 Baso # (Auto) 0.1 Immature Gran # (Auto) 0.08 H Absolute Nucleated RBC 0.00 Immature Gran % 1 H Nucleated RBC % 0 Sodium 144 Potassium 3.6 Chloride 109 H Carbon Dioxide 26.2 Anion Gap 9 BUN 12 Creatinine 0.9 Estim Creat Clear Calc 127.9 eGFR > 60 BUN/Creatinine Ratio 13 Glucose 82 Calculated Osmolality 285 Calcium 8.2 L Corrected Calcium 8.5 Total Bilirubin 0.8 AST 19 ALT 22 Alkaline Phosphatase 104 Total Protein 5.8 Albumin 3.6 Globulin 2.2 L Albumin/Globulin Ratio 1.6 Impressions Impression: Status post removal of the foreign body from the sigmoid colon via exploratory laparotomy and milking the foreign body down to the rectum and subsequently pulling it out Continue postoperative care Assessment & Plan A&P Narrative Foreign body rectum Plan Consent obtained for fiberoptic colonoscopy with possible removal of the foreign body endoscopically under intravenous moderate sedation Will proceed with the procedure Time Spent With Patient Time: Total time spent is greater than 50% in coordination of care (as documented) at patient's floor/unit and/or counseling patient:
[2024-08-30] MEDS: HEPARIN SOD INJ 5000 UNIT/ML VIAL SC (21:31)
[2024-08-30] MEDS: MORPHINE SULF INJ 10 MG/ML VIAL 5 MG IVP (21:50)
[2024-08-31] VITALS (8 sets, daily range): BP systolic 116–160; BP diastolic 71–97; PULSE 80–113; RESP 16–97; TEMP 36.1–36.6; O2SAT 94–98
[2024-08-31] MEDS: ACETAMINOPHEN IVPB 1,000 MG/100 ML VIAL 250 MG IV (05:15)
[2024-08-31] MEDS: HEPARIN SOD INJ 5000 UNIT/ML VIAL SC ×3 (05:17→21:47)
[2024-08-31 05:37] LABS: Basophils % (Auto) 0 % (0-2.5); Eosinophils % (Auto) 0 % (0-10); Hematocrit 40.6 % (41.0-53.0); Hemoglobin 13.9 g/dL (13.5-16.0); Immature Granulocytes % (Auto) 1 % (0-0); Immature Granulocytes Auto 0.08 Thou/mm3 (0.00-0.00); Lymphocytes # (Auto) 1.4 Thou/mm3 (1.0-4.8); Lymphocytes % (Auto) 10 % (10-50); Mean Corpuscular HGB Conc 34.2 g/dl (31.0-37.0); Mean Corpuscular Hemoglobin 30.3 pg (25.0-35.0); Mean Corpuscular Volume 89 fL (80-100); Monocytes # (Auto) 1.3 Thou/mm3 (0.0-0.8); Monocytes % (Auto) 9 % (0-12); Neutrophils # (Auto) 11.5 Thou/mm3 (1.8-7.7); Neutrophils % (Auto) 80 % (37-80); Nucleated Red Blood Cell % 0 /100 WBC (0); Platelet Count 330 Thou/mm3 (140-440); RDW Standard Deviation 39.7 fL (35.1-43.9); Red Blood Count 4.59 Miln/mm3 (4.50-5.90); White Blood Count 14.3 Thou/mm3 (3.8-10.6)
[2024-08-31 06:02] LABS: Alanine Aminotransferase 22 U/L (10-49); Albumin, Serum 3.7 gm/dL (3.5-5.0); Albumin/Globulin Ratio 1.7 (1.2-2.2); Alkaline Phosphatase 97 U/L (46-116); Anion Gap 9 (7-16); Aspartate Amino Transferase 17 U/L (0-34); BUN/Creatinine Ratio 11 Ratio (12-20); Bilirubin,Total 0.6 mg/dL (0.3-1.2); Blood Urea Nitrogen 10 mg/dL (9-23); Calcium 8.5 mg/dL (8.3-10.6); Calcium (Corrected) 8.7 mg/dL (8.5-10.1); Chloride 109 mMol/L (98-107); Creatinine (Component) 0.9 mg/dL (0.6-1.3); Estimated Creatinine Clearance 125.8 mL/min (>60); Globulin 2.2 gm/dL (2.3-3.5); Glucose 109 mg/dL (74-106); Magnesium 1.7 mg/dL (1.6-2.6); Osmolality,Calculated 284 (275-295); Potassium 4.1 mMol/L (3.4-5.1); Sodium 143 mMol/L (136-145); Total Protein 5.9 gm/dL (5.7-8.2); eGFR > 60 See Note
[2024-08-31] MEDS: NICOTINE PATCH 14 MG/24 HR PATCH.TD24 TOP (09:54)
[2024-08-31] MEDS: DOCUSATE SOD 100 MG CAPSULE PO (09:54)
[2024-08-31] MEDS: SODIUM CHLORIDE 0.9% 1000 ML 1,000 ML 125 ML IV ×3 (09:54→23:34)
--- NOTE | 2024-08-31 10:34 | PC.SS ---
Follow up note: Surgery yesterday. Advance diet. Requiring bowel movement. Pt will return home upon dc.
--- NOTE | 2024-08-31 13:31 | PD.ADDPROG ---
Addendum Progress Note Addendum Date of report being addended: 08/31/24 Narrative: Attending's attestation: I reviewed labs, imaging, EKG, home medications and prior available records. Face to face evaluation was performed by me. I have personally examined the patient and discussed assessment and plan with the IM team. I reviewed the resident note and agree with the plan with exceptions as below. Foreign body in anus Leukocytosis Tobacco use Trend WBC: Downtrending Finish IV Zosyn Consulted GI. Failed conservative treatment with enemas and colonoscopy Consulted general surgery. Status post exploratory laparotomy on 08/30 with removal of the foreign body Discussed with general surgery: Advance diet as tolerated. Monitor for bowel movement. Gave Dulcolax. Management of pain as needed Counseled the patient regarding the importance of tobacco cessation Pending tolerance of diet and bowel movement. Pending further surgery recommendations prior to discharge
[2024-08-31] MEDS: MORPHINE SULF INJ 10 MG/ML VIAL 5 MG IVP ×2 (13:43→21:58)
--- NOTE | 2024-08-31 14:49 | PD.SURPROG ---
Documentation for date of: 08/31/24 Subjective Subjective Brief History: History of Latoya's revealed that the patient has had this incident about 3 days ago. I was not able to talk to the patient because he was well sedated after colonoscopy and attempted removal of the foreign body. There was no family members to talk either. Information was obtained from the chart and apparently patient has hypertension Narrative: The patient is comfortable after surgery yesterday for removal of the foreign body. He is passing flatus. Exam Vital Signs Temp Pulse Resp BP Pulse Ox O2 Del Method O2 Flow Rate 97.7 F 99 20 136/95 H 98 Room Air 2 08/31/24 12:00 08/31/24 12:00 08/31/24 12:00 08/31/24 12:00 08/31/24 12:00 08/31/24 12:00 08/30/24 15:18 Patient's vital signs are normal Routine Chest/Breast/Axilla Exam Comments: Examination of the abdomen showed active bowel sounds Results Results: Laboratory Laboratory Narrative: WBC slightly elevated possibly secondary to surgery Assessment & Plan Assessment Additional comments: Impression: Stable postoperative course following exploration Plan Plan we will keep the patient for another day to see if he tolerates diet.. Patient be able to discharge him tomorrow Procedures Procedures Explored laparotomy and removal of the foreign body from the rectosigmoid colon
--- NOTE | 2024-08-31 16:47 | ESPR_ITS ---
Documentation for date of: 08/31/24 Subjective Subjective Interval history: Patient seen and examined at bedside. Patient is status post laparotomy and Removal of foreign body by general surgery done yesterday Patient was started on clear liquid diet, will advance diet as tolerates. Patient started on docusate per surgery recommendations. Pain is well-managed on IV morphine. Exam Vital Signs Temp Pulse Resp BP Pulse Ox O2 Del Method O2 Flow Rate 97.7 F 99 20 136/95 H 98 Room Air 2 08/31/24 12:00 08/31/24 12:00 08/31/24 12:00 08/31/24 12:00 08/31/24 12:00 08/31/24 12:00 08/30/24 15:18 Narrative Exam Physical Exam General: Awake and in no acute distress. Conversational and non-toxic appearing. HEENT: Normocephalic, atraumatic, mucous membranes moist. Heart: Regular rate and rhythm, no murmurs. Lungs: Clear to auscultation with no wheezing or crackles. Abdomen: Soft, nondistended, nontender, positive bowel sounds. ?No guarding or rebound tenderness. Neurologic: Alert and oriented x3, no gross neurological deficit, and patient able to move all 4 extremities. Extremities: No edema. Skin: No rash or ecchymoses. Objective Labs 09/01/24 04:25 09/01/24 04:25 Labs: Laboratory Results - last 24 hr 08/31/24 05:08 WBC 14.3 H D RBC 4.59 Hgb 13.9 Hct 40.6 L MCV 89 MCH 30.3 MCHC 34.2 RDW Std Deviation 39.7 Plt Count 330 D Neut % (Auto) 80 Lymph % (Auto) 10 [place] % (Auto) 9 Eos % (Auto) 0 Baso % (Auto) 0 Neut # (Auto) 11.5 H Lymph # (Auto) 1.4 [place] # (Auto) 1.3 H Eos # (Auto) 0.0 Baso # (Auto) 0.0 Immature Gran # (Auto) 0.08 H Absolute Nucleated RBC 0.00 Immature Gran % 1 H Nucleated RBC % 0 Sodium 143 Potassium 4.1 D Chloride 109 H Carbon Dioxide 25.0 Anion Gap 9 BUN 10 Creatinine 0.9 Estim Creat Clear Calc 125.8 eGFR > 60 BUN/Creatinine Ratio 11 L Glucose 109 H Calculated Osmolality 284 Calcium 8.5 Corrected Calcium 8.7 Magnesium 1.7 Total Bilirubin 0.6 AST 17 ALT 22 Alkaline Phosphatase 97 Total Protein 5.9 Albumin 3.7 Globulin 2.2 L Albumin/Globulin Ratio 1.7 Quality Measures Quality Measures VTE prophylaxis Assessment & Plan Assessment Current Active Medications: Generic Name Dose Route Start Last Admin Trade Name Freq PRN Reason Stop Dose Admin Docusate Sodium 100 mg 08/31/24 09:00 08/31/24 09:54 Docusate Sod 100 Mg Capsule PO 09/30/24 08:59 100 mg QDAY FREDDY Administration Protocol Heparin Sodium (Porcine) 5,000 unit 08/29/24 06:00 08/31/24 13:34 Heparin Sod Inj 5000 Unit/Ml Vial SC 09/12/24 05:59 5,000 unit Q8HR FREDDY Administration Sodium Chloride 1,000 mls @ 125 mls/hr 08/28/24 23:31 08/31/24 15:11 Ns IV 09/27/24 23:30 125 mls/hr .Q8H FREDDY Administration Morphine Sulfate 5 mg 08/30/24 16:00 08/31/24 13:43 Morphine Sulf Inj 10 Mg/Ml Vial IVP 09/04/24 15:59 5 mg Q4HR PRN Administration PAIN Nicotine 14 mg 08/29/24 11:30 08/31/24 09:54 Nicotine Patch 14 Mg/24 Hr Patch.Td24 TOP 09/28/24 11:29 14 mg QDAY FREDDY Administration Ondansetron HCl 4 mg 08/28/24 23:33 Ondansetron Inj 2 Mg/Ml Inj 2 Ml IV 09/27/24 23:32 Q6H PRN NAUSEA OR VOMITING Protocol Plan Assessment and plan: The patient is a 39-year-old male with a previous medical history of hypertension who came into the ED on due to rectal foreign body. Patient is going to be admitted for foreign body removal for further monitoring and management. #Rectal foreign body status post removal by general surgery Patient had inserted a can of Old Spice Deodorant in his rectum 3 days ago. Denies fever, chills, abdominal pain, nausea, vomiting. No guarding, rebounding tenderness on palpation. GI unable to remove foreign body with colonoscopy Patient was taken to the OR had exploratory laparotomy and had the foreign body removed by general surgeon, see op report for details Patient was given Zosyn as prophylactic, no active signs of any peritonitis seen Plan: - Started on clear liquid diet, will advance as tolerates - Started on docusate - Anticipate discharge in next 24 hours if patient tolerates diet and has a bowel movement. #Hypertension Asymptomatic. BP 159/94. No known home medication. Plan: - Continue monitoring for now Health maintenance: FEN: NPO DVT prophylaxis: heparin sc GI prophylaxis: none Dispo: medsurg CODE STATUS: Full code Case discussed with Attending Dr. Deras. Cleopatra Rios PGY1 Disclaimer: This note was dictated by speech recognition. Minor errors in commercial collections driver may be present due to voice recognition software. Attending Provider Attestation/Addendum I reviewed labs, imaging, EKG, home medications and prior available records. Face to face evaluation was performed by me. I have personally examined the patient and discussed assessment and plan with the IM team. I reviewed the resident note and agree with the plan with exceptions as below. See my addendum for the same date of service
--- NOTE | 2024-08-31 19:37 | PD.IMPROG ---
Documentation for date of: 08/31/24 Subjective Subjective Interval history: Patient evaluated doing well postoperatively Passing flatus Exam Vital Signs Temp Pulse Resp BP Pulse Ox O2 Del Method O2 Flow Rate 97 F 95 18 142/97 H 95 Room Air 2 08/31/24 16:00 08/31/24 16:00 08/31/24 16:00 08/31/24 16:00 08/31/24 16:00 08/31/24 12:00 08/30/24 15:18 Objective Labs 08/31/24 05:08 08/31/24 05:08 Labs: Laboratory Results - last 24 hr 08/31/24 05:08 WBC 14.3 H D RBC 4.59 Hgb 13.9 Hct 40.6 L MCV 89 MCH 30.3 MCHC 34.2 RDW Std Deviation 39.7 Plt Count 330 D Neut % (Auto) 80 Lymph % (Auto) 10 [place] % (Auto) 9 Eos % (Auto) 0 Baso % (Auto) 0 Neut # (Auto) 11.5 H Lymph # (Auto) 1.4 [place] # (Auto) 1.3 H Eos # (Auto) 0.0 Baso # (Auto) 0.0 Immature Gran # (Auto) 0.08 H Absolute Nucleated RBC 0.00 Immature Gran % 1 H Nucleated RBC % 0 Sodium 143 Potassium 4.1 D Chloride 109 H Carbon Dioxide 25.0 Anion Gap 9 BUN 10 Creatinine 0.9 Estim Creat Clear Calc 125.8 eGFR > 60 BUN/Creatinine Ratio 11 L Glucose 109 H Calculated Osmolality 284 Calcium 8.5 Corrected Calcium 8.7 Magnesium 1.7 Total Bilirubin 0.6 AST 17 ALT 22 Alkaline Phosphatase 97 Total Protein 5.9 Albumin 3.7 Globulin 2.2 L Albumin/Globulin Ratio 1.7 Impressions Impression: Status post exploratory laparotomy for removal of the sigmoid colon foreign body Doing well postoperatively Assessment & Plan A&P Narrative Foreign body rectum Plan Consent obtained for fiberoptic colonoscopy with possible removal of the foreign body endoscopically under intravenous moderate sedation Will proceed with the procedure Time Spent With Patient Time: Total time spent is greater than 50% in coordination of care (as documented) at patient's floor/unit and/or counseling patient:
[2024-09-01] VITALS: BP 145/87; PULSE 107; PULSE 99; RESP 18; TEMP 36.1; O2SAT 94
[2024-09-01 04:00] VITALS: BP 148/93; PULSE 105; PULSE 99; RESP 18; TEMP 36.1; O2SAT 95
[2024-09-01] MEDS: HEPARIN SOD INJ 5000 UNIT/ML VIAL SC (05:48)
[2024-09-01 06:07] LABS: Basophils # (Auto) 0.1 Thou/mm3 (0.0-0.2); Basophils % (Auto) 0 % (0-2.5); Eosinophils # (Auto) 0.2 Thou/mm3 (0.0-0.5); Eosinophils % (Auto) 1 % (0-10); Hematocrit 41.6 % (41.0-53.0); Hemoglobin 13.8 g/dL (13.5-16.0); Immature Granulocytes % (Auto) 1 % (0-0); Immature Granulocytes Auto 0.15 Thou/mm3 (0.00-0.00); Lymphocytes # (Auto) 2.9 Thou/mm3 (1.0-4.8); Lymphocytes % (Auto) 22 % (10-50); Mean Corpuscular HGB Conc 33.2 g/dl (31.0-37.0); Mean Corpuscular Hemoglobin 30.2 pg (25.0-35.0); Mean Corpuscular Volume 91 fL (80-100); Monocytes # (Auto) 1.3 Thou/mm3 (0.0-0.8); Monocytes % (Auto) 10 % (0-12); Neutrophils # (Auto) 8.5 Thou/mm3 (1.8-7.7); Neutrophils % (Auto) 65 % (37-80); Nucleated Red Blood Cell % 0 /100 WBC (0); Platelet Count 388 Thou/mm3 (140-440); RDW Standard Deviation 41.2 fL (35.1-43.9); Red Blood Count 4.57 Miln/mm3 (4.50-5.90); White Blood Count 13.1 Thou/mm3 (3.8-10.6)
[2024-09-01 06:35] LABS: Magnesium 1.7 mg/dL (1.6-2.6)
[2024-09-01 06:47] LABS: Alanine Aminotransferase 20 U/L (10-49); Albumin, Serum 3.7 gm/dL (3.5-5.0); Albumin/Globulin Ratio 1.7 (1.2-2.2); Alkaline Phosphatase 89 U/L (46-116); Anion Gap 8 (7-16); Aspartate Amino Transferase 15 U/L (0-34); BUN/Creatinine Ratio 9 Ratio (12-20); Bilirubin,Total 0.4 mg/dL (0.3-1.2); Blood Urea Nitrogen 7 mg/dL (9-23); Calcium 8.3 mg/dL (8.3-10.6); Calcium (Corrected) 8.5 mg/dL (8.5-10.1); Carbon Dioxide 25.8 mMol/L (20.0-31.0); Chloride 109 mMol/L (98-107); Creatinine (Component) 0.8 mg/dL (0.6-1.3); Estimated Creatinine Clearance 141.5 mL/min (>60); Globulin 2.2 gm/dL (2.3-3.5); Glucose 91 mg/dL (74-106); Osmolality,Calculated 282 (275-295); Potassium 3.6 mMol/L (3.4-5.1); Sodium 143 mMol/L (136-145); Total Protein 5.9 gm/dL (5.7-8.2); eGFR > 60 See Note
[2024-09-01] MEDS: SODIUM CHLORIDE 0.9% 1000 ML 1,000 ML 125 ML IV (07:58)
[2024-09-01 08:00] VITALS: BP 155/99; PULSE 104; RESP 18; TEMP 36.6; O2SAT 93
[2024-09-01] MEDS: POLYETHYLENE GLYCOL 17 GM PACKET PO (08:30)
[2024-09-01] MEDS: SENNA TABLET 2 TAB PO (08:31)
[2024-09-01] MEDS: DOCUSATE SOD 100 MG CAPSULE PO (08:31)
[2024-09-01] MEDS: NICOTINE PATCH 14 MG/24 HR PATCH.TD24 TOP (08:31)
--- NOTE | 2024-09-01 11:40 | PD.SURPROG ---
Documentation for date of: 09/01/24 Subjective Subjective Brief History: History of Latoya's revealed that the patient has had this incident about 3 days ago. I was not able to talk to the patient because he was well sedated after colonoscopy and attempted removal of the foreign body. There was no family members to talk either. Information was obtained from the chart and apparently patient has hypertension Narrative: The patient is feeling better. He has had a bowel movement and is passing flatus. He is tolerating regular diet Exam Vital Signs Temp Pulse Resp BP Pulse Ox O2 Del Method O2 Flow Rate 97.8 F 104 H 18 155/99 H 93 L Room Air 2 09/01/24 08:00 09/01/24 08:00 09/01/24 08:00 09/01/24 08:00 09/01/24 08:00 09/01/24 08:00 08/30/24 15:18 His vital signs are normal other than tachycardia around 104 Routine Abdominal Exam Comments: Abdominal examination shows hypoactive bowel sounds. Incision is clean Results Results: Laboratory Laboratory Narrative: There is still some leukocytosis on the CBC Assessment & Plan Assessment Additional comments: Impression: Satisfactory recovery following exploratory laparotomy Plan Plan: Will discharge patient today if it is okay with the hospitalist. I will follow him in my office in 2 weeks for suture removal. Procedures Procedures Explored laparotomy and removal of the foreign body from the rectosigmoid colon
--- NOTE | 2024-09-01 11:52 | PD.RESPRO ---
Documentation for date of: 09/01/24 Exam Vital Signs Temp Pulse Resp BP Pulse Ox O2 Del Method O2 Flow Rate 97.8 F 104 H 18 155/99 H 93 L Room Air 2 09/01/24 08:00 09/01/24 08:00 09/01/24 08:00 09/01/24 08:00 09/01/24 08:00 09/01/24 08:00 08/30/24 15:18 Objective Labs 09/01/24 04:25 09/01/24 04:25 Labs: Laboratory Results - last 24 hr 09/01/24 04:25 WBC 13.1 H RBC 4.57 Hgb 13.8 Hct 41.6 MCV 91 MCH 30.2 MCHC 33.2 RDW Std Deviation 41.2 Plt Count 388 D Neut % (Auto) 65 Lymph % (Auto) 22 [place] % (Auto) 10 Eos % (Auto) 1 Baso % (Auto) 0 Neut # (Auto) 8.5 H Lymph # (Auto) 2.9 [place] # (Auto) 1.3 H Eos # (Auto) 0.2 Baso # (Auto) 0.1 Immature Gran # (Auto) 0.15 H Absolute Nucleated RBC 0.00 Immature Gran % 1 H Nucleated RBC % 0 Sodium 143 Potassium 3.6 D Chloride 109 H Carbon Dioxide 25.8 Anion Gap 8 BUN 7 L Creatinine 0.8 Estim Creat Clear Calc 141.5 eGFR > 60 BUN/Creatinine Ratio 9 L Glucose 91 Calculated Osmolality 282 Calcium 8.3 Corrected Calcium 8.5 Magnesium 1.7 Total Bilirubin 0.4 AST 15 ALT 20 Alkaline Phosphatase 89 Total Protein 5.9 Albumin 3.7 Globulin 2.2 L Albumin/Globulin Ratio 1.7 Quality Measures Quality Measures VTE prophylaxis Assessment & Plan Assessment Current Active Medications: Generic Name Dose Route Start Last Admin Trade Name Freq PRN Reason Stop Dose Admin Hydrocodone Bitart/Acetaminophen 1 tab 09/01/24 10:40 Hydrocodone/Apap 5/325 Tablet PO 09/06/24 10:39 Q4HR PRN PAIN SCALE 4-6 (Moderate Docusate Sodium 100 mg 08/31/24 09:00 09/01/24 08:31 Docusate Sod 100 Mg Capsule PO 09/30/24 08:59 100 mg QDAY FREDDY Administration Protocol Heparin Sodium (Porcine) 5,000 unit 08/29/24 06:00 09/01/24 05:48 Heparin Sod Inj 5000 Unit/Ml Vial SC 09/12/24 05:59 5,000 unit Q8HR FREDDY Administration Sodium Chloride 1,000 mls @ 125 mls/hr 08/28/24 23:31 09/01/24 07:58 Ns IV 09/27/24 23:30 125 mls/hr .Q8H FREDDY Administration Morphine Sulfate 2 mg 09/01/24 10:41 Morphine Sulf Inj 10 Mg/Ml Vial IVP 09/04/24 15:59 Q4HR PRN PAIN Nicotine 14 mg 08/29/24 11:30 09/01/24 08:31 Nicotine Patch 14 Mg/24 Hr Patch.Td24 TOP 09/28/24 11:29 14 mg QDAY FREDDY Administration Ondansetron HCl 4 mg 08/28/24 23:33 Ondansetron Inj 2 Mg/Ml Inj 2 Ml IV 09/27/24 23:32 Q6H PRN NAUSEA OR VOMITING Protocol Polyethylene Glycol 17 gm 09/01/24 09:00 09/01/24 08:30 Polyethylene Glycol 17 Gm Packet PO 10/01/24 08:59 17 gm QDAY FREDDY Administration Sennosides 2 tab 09/01/24 09:00 09/01/24 08:31 Senna Tablet PO 10/01/24 08:59 2 tab QDAY FREDDY Administration Protocol
[2024-09-01 12:00] VITALS: BP 152/89; PULSE 105; RESP 20; TEMP 36.1; O2SAT 97
--- NOTE | 2024-09-01 12:09 | ESDS_ITS ---
<Statement entered by Kushal Dodd MD - 09/06/24 11:44> Patient seen and examined at bedside with resident. Agree with assessment and plan as dictated below. Patient cleared for discharge to home and advised to follow-up closely with general surgery and primary care within 1 week. Given additional week of pain meds. Kushal Dodd MD Planned Discharge Date 09/01/24 DS: Providers Provider Date of admission: 08/28/24 23:03 Primary care physician: Physician No Primary/Family Admitting Provider: Kushal Echavarria MD Attending Provider on Admission: Pee Deras MD Consults: 08/28/24 22:49 Consult to Gastroenterology Stat Comment: Consulting Provider: Cole Adair 08/29/24 00:28 [facility] Referral - Nutrition Routine Comment: Positive screening for nutrition needs. [facility] Referral - Transportation Routine Comment: Positive screening for transportation needs. 08/29/24 23:23 Consult to General Surgery Routine Comment: Consulting Provider: Mari Mcfadden Attending Provider on DC: Kushal Dodd MD Discharging Provider: Kushal Dodd MD Anticipated date of discharge: 09/01/24 DS: Diagnosis Problem List Completed Was Problem List Reviewed/Reconciled?: Yes Hospital Course Hospital Course Hospital course: Hospital course: Mr. Jones is a 39-year-old male with past medical history of hypertension who presented to [facility] emergency department on with a chief complaint of rectal foreign body,patient's abdominal x- ray showed opaque foreign body in pelvis likely in the rectosigmoid, around 15 cm. Patient was admitted, kept n.p.o., gastroenterology was consulted for possible removal via colonoscopy. Gastroenterology was unable to retrieve the foreign body secondary to its size and General Surgery was consulted, patient was given Zosyn prophylactically, had laparotomy done by general surgeon on 08/30/2024, the foreign body was felt, was milked down from sigmoid colon down into the rectum and was retrieved without any complications. Patient's pain was managed post retrieval of foreign body, was started on clear liquid diet which was eventually advanced to regular diet. Patient had a bowel movement and reported feeling well. Further plan is to discharge patient home on hydrocodone/acetaminophen tablets as needed for severe pain and lisinopril 10 mg daily for hypertension. Patient to follow-up with general surgeon Dr. Mcfadden on September 10, patient to follow-up with primary care physician in 1 week. Patient is stable for discharge, patient responded well to hospital treatment. Discharge diagnosis: #Foreign body in sigmoid colon, status post removal by general surgeon #Status post exploratory laparotomy #Hypertension Case discussed with Attending Dr. Dodd. Cleopatra Rios PGY1 Disclaimer: This note was dictated by speech recognition. Minor errors in varnish dipper may be present due to voice recognition software. Status at Discharge Functional status at discharge: independent ambulation Overall status at discharge: patient is progressing back to baseline Time Spent with Patient Time attestation: Total time spent providing and/or coordinating discharge services: Time spent: Greater than 30 minutes Exam Vital Signs Temp Pulse Resp BP Pulse Ox O2 Del Method O2 Flow Rate 97.8 F 104 H 18 155/99 H 93 L Room Air 2 09/01/24 08:00 09/01/24 08:00 09/01/24 08:00 09/01/24 08:00 09/01/24 08:00 09/01/24 08:00 08/30/24 15:18 Narrative Exam Physical Exam General: Awake and in no acute distress. Conversational and non-toxic appearing. HEENT: Normocephalic, atraumatic, mucous membranes moist. Heart: Regular rate and rhythm, no murmurs. Lungs: Clear to auscultation with no wheezing or crackles. Abdomen: Soft, nondistended, nontender, positive bowel sounds. ?No guarding or rebound tenderness. Neurologic: Alert and oriented x3, no gross neurological deficit, and patient able to move all 4 extremities. Extremities: No edema. Skin: No rash or ecchymoses. Dressing intact abdomen, clean. Discharge Plan Plan Patient Disposition: HOME (Self Care) Patient condition on transfer: Stable Prescriptions/Referrals Prescriptions/Med Rec: New hydrocodone-acetaminophen 5-325 mg tablet 1 tab PO Q8H MDD 3 tablets PRN (Reason: pain (scale score 7-10)) 7 Days Qty: 21 0RF lisinopril 10 mg tablet 10 mg PO QDAY 30 Days Qty: 30 0RF Discontinued hydrocodone-acetaminophen 5-325 mg tablet 1 tab PO Q6H MDD 4 PRN (Reason: pain) Qty: 20 0RF ibuprofen 800 mg tablet 800 mg PO Q6H PRN (Reason: pain) Qty: 14 0RF ibuprofen 800 mg tablet 800 mg PO TID PRN (Reason: pain) Qty: 30 0RF Referrals: No Primary/Family,Physician [Primary Care Provider] - Mari Mcfadden MD [Physician] - Cleopatra Rios MD [Resident] - Patient/Caregiver Discharge Instructions Discharge Activity: activity as tolerated Other Discharge Activity Instructions:: Do not wear any dressing on the abdomen. May wash the jose. Follow-up with Laureano Gonzalez general surgeon on September 10. My office is at [address] Call [phone] for an appointment time. Follow up with PCP in one week you can also follow-up in [facility] in 1 to 2 weeks. Call [phone] to make an appointment Address: [facility], [address] [place] [address] , [address], [place], [address] Return to ED if symptoms return or worsen. Education Materials: ED Hypertension, New (Begin Treatment), ED Rectal Foreign Body Removed ... Print Language: Yoruba Activity Restrictions/Additional Instructions: Regular diet Activities as tolerated Do not wear any dressing on the abdomen. May wash the jose Follow-up in my office on September 10. My office is at [address] Call [phone] for an appointment time Stand Alone Forms: [employer] Award Info., Patient Portal Info Letter Discharge Order Discharge Orders: Discharge (Routine); Ordered 09/01/24 Ordered By: Cleopatra Rios Quality Discharge Quality Measures none
--- NOTE | 2024-09-02 16:16 | PC.SS ---
Late entry: SS made aware pt needed transportation set up; SS set up ride with [employer]; pt set to cigar [employer] and picker at 1530; nurse was notified and confirmed pt to go to address in [place]
== END 2024-09-01 15:11 | disposition home or self-care (01) | DRG 223 ==
LOC: SERX 23:35 → SERHOLD 23:48 → S3NX 08-29 00:02
PROVIDERS: Specialist; Surgery; Admitting Provider Internal Medicine; Emergency Provider Emergency Medicine; Visit Provider Student in an Organized Health Care Education/Training Program
PROC: 0DJD8ZZ Inspection of Lower Intestinal Tract, Via Natural or Artificial Opening Endoscopic (ICD-10-PCS; CPT 45378; principal; 2024-08-29 16:30)
PROC: 0DCP0ZZ Extirpation of Matter from Rectum, Open Approach (ICD-10-PCS; CPT 49000; principal; 2024-08-30 08:30)
DX: T18.5XXA Foreign body in anus and rectum, initial encounter (principal); I10 Essential (primary) hypertension; F17.290 Nicotine dependence, other tobacco product, uncomplicated; F17.210 Nicotine dependence, cigarettes, uncomplicated; F41.9 Anxiety disorder, unspecified; W44.9XXA Unspecified foreign body entering into or through a natural orifice, initial encounter; D72.829 Elevated white blood cell count, unspecified; Z71.6 Tobacco abuse counseling
CPT/HCPCS: 36415; 74018; 80053; 83735; 85025; 85610; 85730; 96372; 99285; A4217; A4649; J0131; J1100; J1200; J1643; J2175; J2250; J2270; J2371; J2405; J2543; J2704; J3010; J3490; J7030; A9270; J1596

== ENCOUNTER 2024-09-15 13:06 | Emergency (ER) | payer MEDICAID, SELFPAY ==
[2024-09-15 13:34] VITALS: BP 135/78; PULSE 93; RESP 20; TEMP 37.1; O2SAT 100; BMI 32.5
--- NOTE | 2024-09-15 13:48 | EDNOTE_ITS ---
ED Wound/Laceration-RME/HPI General Chief Complaint: Wound Recheck / Suture Removal Stated Complaint: STAPLE REMOVAL Time Seen by Provider: 09/15/24 13:27 Arrival date/time: 09/15/24 13:06 RME / HPI RME / HPI narrative: 39 year old male with history of surgery performed on 08/30/[address] Liao for foreign body in anus and rectum, was presented to the ER with a chief complaint for removal of jose. Patient stated that he lost the paperwork for the follow-up appointment with Dr. Guerra. No other complaints were reported. Related Data Previous Rx's ?Medication ?Instructions ?Recorded lisinopril 10 mg tablet 10 mg PO QDAY Hypertension 3 0 days 09/01/24 #30 tabs Allergies Allergy/AdvReac Type Severity Reaction Status Date / Time No Known Allergies Allergy Verified 09/15/24 13:08 Review of Systems Review of Systems Systems Reviewed: All systems reviewed, normal except as documented Narrative Review of Systems: Gen: No fever, no chills, no weight loss EYES: No discharge, no visual changes, no pain HEENT: No ear pain, no congestion, no sore throat PULM: No shortness of breath, no cough, no congestion CV: No chest pain, no dyspnea on exertion, no palpitations GI: No nausea, no vomiting, no diarrhea, no pain, no constipation : No frequency, no urgency, no dysuria Musc/skel: No joint pain, no back pain Skin: No rash Psyc: No hallucinations, no depression Heme/Lymph: No easy bleeding or bruising tendencies Neuro: No weakness, no headache Past Medical History Past Medical History CARDIAC: Positive Hypertension Family History FAMILY HISTORY: Negative Family Psychiatric Problems, Family Respiratory Disorders, Family Cardiac Disorders, Family Gastrointestinal Problems, Family Cancer, Family Surgery or Family Anesthesia Reaction Social History SMOKING STATUS: Current every day smoker SECOND HAND EXPOSURE: Yes ED Exam Narrative Physical exam: GENERAL APPEARANCE: alert and oriented x 4, well-developed, well-nourished, no acute distress HEENT: Normocephalic, atraumatic; pupils equal, round, reactive to light; EOMI; mucous membranes pink, moist; oropharynx clear NECK: Supple LUNGS: CTABL; no wheezes, no rales, no rhonchi HEART: Regular rate, regular rhythm; normal S1, S2; no murmurs ABDOMEN: non distended; normal BS; 20-25cm well healed surgical scar on anterior abdominal wall, no drainage, no erythema, no dehiscence, no tenderness, no guarding, no rebound; no masses, no organomegaly, no hernia BACK: no CVA tenderness EXTREMITIES: atraumatic; no edema NEUROLOGIC: awake; alert and oriented x4; cranial nerves II-XII grossly intact; no focal sensory or motor deficits PSYCHIATRIC: appropriate mood and affect SKIN: warm, dry, normal color; no rashes Course Quality Measures none Vital Signs Vital signs: Vital Signs Temperature 98.8 F 09/15/24 13:34 Pulse Rate 93 09/15/24 13:34 Respiratory Rate 20 09/15/24 13:34 Blood Pressure 135/78 H 09/15/24 13:34 Pulse Oximetry (%) 100 09/15/24 13:34 Oxygen Delivery Method Room Air 09/15/24 13:34 Wound / Laceration MDM Narrative MDM Narrative:: IKely am scribing for and in the presence of Dr. Pastor Patient data External records reviewed:: [facility] previous records Clinical information provided by:: patient Social determinants that could affect healthcare access:: none Patient has the following chronic illnesses:: history of surgery done on the abdomen due to foreign body in anus and rectum How is presenting disease/condition affected by chronic disease/condition?: exacerbated by Evaluation data The following diagnostics were reviewed and interpreted by me:: other (specify) (none) Lab and/or radiology exams considered but not ordered:: none Interpretation Summary: none Medications / Prescriptions Medications or Prescriptions considered but not ordered:: none Medication administrations:: see above (if any). Consultations Consultation(s) initiated? (list below): Yes Consultation #1 (Physician, Specialty, Details): 1313: Spoke with Dr. Liao, General Surgeon, regarding recent surgery and staple removal. Diagnosis Wound Differential Diagnosis: laceration and abscess Most likely diagnosis given after review of the tests above:: Encounter for removal of jose Admission Request Was there a request for admission?: No Disposition Plan Disposition Plan: Discharge Discharge Attestation Discharge Attestation: The patient and all family members were given an opportunity to ask questions and understood the discharge instructions. Discharge instructions specifically effects, indications for sooner follow up or return to the emergency department, and the expected course of current diagnosis. Patient condition: Stable Discharge Plan Plan Patient Disposition: HOME (Self Care) Prescriptions/Referrals Prescriptions/Med Rec: No Action lisinopril 10 mg tablet 10 mg PO QDAY 30 Days Qty: 30 0RF Referrals: Mari Mcfadden MD [Physician] - Problem List Clinical Impression: Encounter for removal of jose Patient/Caregiver Discharge Instructions Education Materials: ED Stitches/Staple Removal No ... Print Language: Pashto Stand Alone Forms: [employer] Award Info., Patient Portal Info Letter
--- NOTE | 2024-09-15 14:34 | PC.NURSE ---
per staff patient left without paperwork. notified provider.
== END 2024-09-15 14:34 | disposition home or self-care (01) ==
LOC: SERX 13:49
PROVIDERS: Emergency Provider Emergency Medicine
DX: S36.63XD Laceration of rectum, subsequent encounter (principal); X58.XXXD Exposure to other specified factors, subsequent encounter
CPT/HCPCS: 99281

== ENCOUNTER 2025-04-15 07:30 | Emergency (ER) | payer MEDICAID, SELFPAY ==
[2025-04-15 07:41] VITALS: BP 156/89; PULSE 100; RESP 18; TEMP 37; O2SAT 99
--- NOTE | 2025-04-15 07:45 | XR_ITS ---
EXAMINATION: XR chest 1V portable ORDERING PROVIDER: ANNA Dougherty HISTORY: r/o pna TECHNIQUE: Single portable AP radiograph of the chest. COMPARISON: None. FINDINGS: Lines and Tubes: None. Lungs: Clear. Pleura: No pneumothorax or pleural effusion. Cardiomediastinal Silhouette: Normal. Soft Tissues/Bones: Normal. IMPRESSION: No acute pulmonary findings.
--- NOTE | 2025-04-15 07:55 | PD.EDURI ---
Upper Respiratory Inf. RME/HPI General Chief Complaint: Fever Stated Complaint: FEVER, CHILLS, ACHING, COUGH Time Seen by Provider: 04/15/25 07:40 Source: patient Arrival date/time: 04/15/25 07:30 39-year-old male with no known medical history presents to the emergency room with a chief complaint of fever, chills, body aches, cough x 3 days Mode of arrival: ambulatory Limitations: no limitations Related Data Previous Rx's ?Medication ?Instructions ?Recorded acetaminophen 325 mg capsule 650 mg (2 x 325 mg) PO QID PRN 04/15/25 fever or pain 7 days #30 caps Allergies Allergy/AdvReac Type Severity Reaction Status Date / Time No Known Allergies Allergy Verified 04/15/25 07:33 Review of Systems Review of Systems Systems Reviewed: All systems reviewed, normal except as documented Constitutional Constitutional: Reports system reviewed and no additional complaints, except as documented, Denies fatigue, Denies fever(s), Denies headache(s) and Denies weakness Eyes Eyes: Reports system reviewed and no additional complaints, except as documented, Denies blurry vision and Denies change in vision ENT Ears, Nose, Mouth, and Throat: Reports system reviewed and no additional complaints, except as documented, Denies otalgia, Denies headache(s), Denies nasal congestion, Denies throat swelling and Denies vertigo Cardiovascular Cardiovascular: Reports system reviewed and no additional complaints, except as documented, Denies chest pain, Reports dyspnea and Denies dyspnea on exertion Respiratory Respiratory: Reports system reviewed and no additional complaints, except as documented, Reports chest congestion, Reports cough, Reports dyspnea, Denies dyspnea on exertion and Denies wheezing Gastrointestinal Gastrointestinal: Reports system reviewed and no additional complaints, except as documented, Denies abdominal pain, Denies cramping, Denies nausea and Denies vomiting Genitourinary Genitourinary: Reports system reviewed and no additional complaints, except as documented, Denies dysuria and Denies hematuria Musculoskeletal Musculoskeletal: Reports system reviewed and no additional complaints, except as documented and Denies back pain Integumentary/Breasts Skin/Breast: Reports system reviewed and no additional complaints, except as documented and Denies wounds Neurologic Neurologic: Reports system reviewed and no additional complaints, except as documented, Denies confusion, Denies headache(s), Denies lack of coordination, Denies vertigo and Denies weakness Psychiatric Psychiatric: Reports system reviewed and no additional complaints, except as documented, Denies anxiety, Denies confusion, Denies depression, Denies paranoia, Denies suicidal ideation and Denies tactile hallucinations Endocrine Endocrine: Reports system reviewed and no additional complaints, except as documented and Denies fatigue Hematologic/Lymphatic Hematologic/Lymphatic: Reports system reviewed and no additional complaints, except as documented and Denies lymphadenopathy Allergic/Immunologic Allergic/Immunologic: Reports system reviewed and no additional complaints, except as documented, Denies throat swelling, Denies urticaria and Denies wheezing Past Medical History Past Medical History NEUROLOGIC: Negative Neurological Disorders or Seizures CARDIAC: Positive Hypertension; Negative Cardiac Disorders or Congestive Heart Failure RESPIRATORY: Negative Chronic Obstructive Pulmonary Disease (COPD) GASTROINTESTINAL: Negative Gastrointestinal Disorders GENITOURINARY: Negative Genitourinary Disorders or Renal Disease ENDOCRINE: Negative Diabetes Mellitus Type 1 or Diabetes Mellitus Type 2 HEMATOLOGIC: Negative Blood Disorders OTHER HISTORY: Negative Autoimmune Disease, Blood Transfusions or Anesthesia Reactions Family History FAMILY HISTORY: Negative Family Psychiatric Problems, Family Respiratory Disorders, Family Cardiac Disorders, Family Gastrointestinal Problems, Family Cancer, Family Surgery or Family Anesthesia Reaction Social History SMOKING STATUS: Current every day smoker SECOND HAND EXPOSURE: Yes ED Exam General Limitations: Present no limitations General appearance: Present alert and in no apparent distress Head Head exam: Present atraumatic Eye Eye exam: Present normal appearance, PERRL and EOMI ENT ENT exam: Present normal exam, normal oropharynx and mucous membranes moist Neck Neck exam: Present normal inspection, full ROM and trachea midline Chest Chest inspection: Present normal inspection and symmetric chest wall rise Respiratory Respiratory exam: Present normal lung sounds bilaterally; Absent respiratory distress, wheezes, stridor, accessory muscle use or prolonged expiratory phase Cardiovascular Cardiovascular exam: Present regular rate, normal rhythm, normal heart sounds, +S1 and +S2; Absent tachycardia Abdominal Exam Abdominal exam: Present soft and normal bowel sounds Extremities Exam Extremities exam: Present normal inspection and full ROM Back Exam Back exam: Present normal inspection and full ROM Neurological Exam Neurological exam: Present alert, oriented X3 and CN II-XII intact Psychiatric Psychiatric exam: Present normal affect and normal mood Skin Skin exam: Present warm, dry, intact and normal color Course Quality Measures none Orders Category Date Time Status Bedside COVID-19 Antigen Test NOW Care 04/15/25 07:45 Completed XR chest 1V portable Stat Exams 04/15/25 07:45 Completed Influenza A & B Rapid Panel Stat Lab 04/15/25 07:56 Completed Vital Signs Vital signs: Vital Signs Temperature 98.6 F 04/15/25 07:41 Pulse Rate 100 04/15/25 07:41 Respiratory Rate 18 04/15/25 07:41 Blood Pressure 156/89 H 04/15/25 07:41 Pulse Oximetry (%) 99 04/15/25 07:41 Oxygen Delivery Method Room Air 04/15/25 07:41 Upper Respiratory Infection MDM Narrative MDM Narrative:: 39-year-old male with no known medical history presents to the emergency room with a chief complaint of fever, chills, body aches, cough x 3 days Patient is hemodynamically stable and in no apparent distress. Patient is afebrile nontachycardic nontachypneic. Patient's O2 saturation of 99% on room air Physical examination shows clear bilateral lung sounds there is no wheezing or any abnormal breath sounds. Chest x-ray was negative for any pneumonic infiltrates. COVID-19 and influenza were both negative Patient was discharged and educated to follow-up with primary care provider in the next 24 to 48 hours and return to the emergency room for any evidence of worsening signs or symptoms Patient data External records reviewed:: [facility] [place] previous records Clinical information provided by:: patient Social determinants that could affect healthcare access:: none Patient has the following chronic illnesses:: No chronic illness How is presenting disease/condition affected by chronic disease/condition?: no chronic disease Evaluation data The following diagnostics were reviewed and interpreted by me:: lab results and radiology exam(s) Lab and/or radiology exams considered but not ordered:: Labs and radiology exams considered and ordered Interpretation Summary: Chest [id number]: Lines and Tubes: None. Lungs: Clear. Pleura: No pneumothorax or pleural effusion. Cardiomediastinal Silhouette: Normal. Soft Tissues/Bones: Normal. IMPRESSION: No acute pulmonary findings. Medications / Prescriptions Medications or Prescriptions considered but not ordered:: No medication given Medication administrations:: No medication given Consultations Consultation(s) initiated? (list below): No Diagnosis Upper Respiratory Differential Diagnosis: upper respiratory infection, viral infection, bronchitis, influenza and other (Community-acquired pneumonia) Most likely diagnosis given after review of the tests above:: Upper respiratory infection Admission Indicated Admission indicated?: not indicated Admission Request Was there a request for admission?: No Disposition Plan Disposition Plan: Discharge Discharge Attestation Discharge Attestation: The patient and all family members were given an opportunity to ask questions and understood the discharge instructions. Discharge instructions specifically effects, indications for sooner follow up or return to the emergency department, and the expected course of current diagnosis. Patient condition: Stable Discharge Plan Plan Patient Disposition: HOME (Self Care) Discharge Disposition comment: Stable Prescriptions/Referrals Prescriptions/Med Rec: New acetaminophen 325 mg capsule 650 mg PO QID PRN (Reason: fever or pain) 7 Days Qty: 30 0RF Referrals: No Primary/Family,Physician [Primary Care Provider] - In 1 week Problem List Clinical Impression: Upper respiratory infection Patient/Caregiver Discharge Instructions Education Materials: ED URI, Viral, No Abx (Adult) Additional Instructions: Please follow-up with your primary care provider in the next 24 to 48 hours. You tested negative for influenza, COVID-19. Your chest x-ray was negative for any pneumonia. Your most probable cause is an upper respiratory infection. The treatment for this is symptom management. Please continue to take Tylenol and ibuprofen for fever management. Please increase your oral fluid intake. For any evidence of worsening signs or symptoms please return to the emergency room immediately Print Language: Haitian Stand Alone Forms: [employer] Award Info., Work/School Release, Patient Portal Info Letter
[2025-04-15 08:42] LABS: Influenza A Ag Negative; Influenza B Ag Negative
[2025-04-15 09:06] VITALS: BP 158/94; PULSE 100; RESP 19; TEMP 36.9; O2SAT 97
== END 2025-04-15 09:07 | disposition home or self-care (01) ==
PROVIDERS: Emergency Provider Nurse Practitioner Family
DX: J06.9 Acute upper respiratory infection, unspecified (principal); F17.210 Nicotine dependence, cigarettes, uncomplicated
CPT/HCPCS: 71045; 87502; 87635; 99282